=== PATIENT | female | born 1990 | race American Indian/Alaskan Native ===

== ENCOUNTER 2016-03-05 11:23 | Inpatient (IN) | payer OTHER, MEDICAID ==
--- NOTE | 2016-03-05 12:09 | History and Physical Report ---
History of Present Illness Date of examination: 03/05/16 Date of admission: 03/05/16 11:23 Chief complaint: Pt sent in for admission d/t elevated b/p in office today @ 35w2d, severe IUGR <1st% by AMF. Currently dx with gestation htn. pt reports OJEDA and blurred vision last night but not currently. 24h completed and turned into AMFM 03/01 but not enough urine to give accurate results. Patient will repeat test in hospital. History of present illness: EDC Calculations by 1st trimester u/s - 04/07/16 Past History : 3 Term Births: 0 Premature Births: 0 Living Children: 0 Para: 0 Mult. Births: 0 Prev : 0 Aborta: 2 Elect. Ab: 1 Spont. Ab: 1 # 1 Delivery date: 2006 Weeks Gestation: 17 Delivery type: SAB Comments: pt reports no FHT, unknown cause # 2 Delivery date: 2009 Weeks Gestation: 14 Delivery type: EAB Past Medical History: Negative Past Medical History Past Surgical History: negative Past Medical History Anesthesia Complications: negative Anemia: negative Autoimmune Disorder: negative Bleeding Disorder: negative Blood Transfusions: negative Breast Disease: negative Diabetes: negative Heart Disease: negative Hypertension: negative Hepatitis/Liver Disease: negative Kidney Disease/UTI: negative Neurologic/Epilepsy/Migraines: negative Phlebitis/Varicosities: negative Psychiatric: negative Pulmonary Disease/Asthma: negative Thyroid Disease: negative Hospitalizations: negative Surgery (Non-product manager): 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 Infection History Hx of STD: none HIV Risk Eval: no Hepatitis B Risk Eval: low risk Personal hx. of genital herpes: no Partner hx. of genital herpes: no Rash, Viral, or Febrile illness since last LMP? no Varicella/Chicken Pox Status: Previous Disease TB Risk: no Genetic History Congenital Heart Defect: Mom: no Dad: no Ethan Disease: Mom: no Dad: no Thalassemia Mom: no Dad: no Neural Tube Defect Mom: no Dad: no Down's Syndrome Mom: no Dad: no Gigi-Sachs Mom: no Dad: no Sickle Cell Disease/Trait Mom: no Dad: no Hemophilia Mom: no Dad: no Muscular Dystrophy Mom: no Dad: no Cystic Fibrosis Mom: no Dad: no Quynh Chorea Mom: no Dad: no Mental Retardation Mom: no Dad: no Fragile X Mom: no Dad: no Other Genetic/Chromosomal Disorder Mom: no Dad: no Child w/other defect Mom: no Dad: no Enviromental Exposures Xray Exposure: no Medication, drug, or alcohol use since LMP: no Chemical/Other Exposure: no Exposure to Cat Liter: no Hx of Parvovirus (Fifth Disease): no Occupational Exposure to Children: none Active Medications (reviewed today): ZOFRAN 4 MG ORAL TABS (ONDANSETRON HCL) 1 po q6h PRN nausea Current Allergies (reviewed today): LATEX GLOVES (DISPOSABLE GLOVES) (Critical) ALEVE (NAPROXEN SODIUM CAPS) (Critical) Past History - Obstetrical History Expected Date of Delivery: 04/07/16 Actual Gestation: 35 Week(s) 2 Day(s) : 3 Para: 0 Hx # Term Pregnancies: 0 Number of Pregnancies: 0 Spontaneous Abortions: 1 Induced : 1 Number of Living Children: 0 Medications and Allergies Allergies Allergy/AdvReac Type Severity Reaction Status Date / Time Latex, Natural Rubber Allergy Hives Verified 03/05/16 11:46 naproxen sodium [From Aleve] Allergy Hives Verified 08/15/15 23:27 Home Medications Medication Instructions Recorded Confirmed Last Taken Type Ondansetron [Zofran Odt] 4 mg PO Q4H PRN #20 tab.rapdis 08/16/15 09/30/15 14:00 Rx 4mg Famotidine [Pepcid] 10 mg PO BID #30 tablet 09/03/15 09/30/15 Unknown Rx Ondansetron [Zofran INJ] 4 mg IV Q12HR #14 vial 09/03/15 09/30/15 1 Day Ago Rx 4mg Promethazine HCl [Phenergan SUPPOS] 25 mg RC Q6HR #30 supp.rect 09/03/15 1 Day Ago Rx 25 RX: Propylthiouracil 50 mg PO Q12HR #60 tablet 09/03/15 09/30/15 09/30/15 02:00 Rx 50mg RX: Methimazole 15 mg PO Q12H #60 tablet 10/01/15 Unknown Rx RX: Potassium Chloride 20 meq PO DAILY #7 tab.er.prt 10/04/15 Unknown Rx Review of Systems All systems: negative - Vital Signs Vital signs: Vital Signs Pulse BP 70 142/92 03/05/16 11:44 03/05/16 11:44 Temp Pulse Resp BP Pulse Ox 98.0 F 70 18 142/90 03/05/16 11:49 03/05/16 11:49 03/05/16 11:49 03/05/16 11:49 - Physical Exam Breasts: Positive: normal Cardiovascular: Regular rate Lungs: Positive: Clear to auscultation, Normal air movement Abdomen: Positive: normal appearance, soft Genitourinary (Female): Positive: normal external genitalia, normal perenium Vulva: both: normal Vagina: Positive: normal moisture Uterus: Positive: normal size, normal contour Deep Tendon Reflex Grade: Normal +2 Results Result Diagrams: 03/05/16 12:35 03/05/16 12:35 All other labs normal. Laboratory Data-Patient Name: MORALES KULKARNI Test Date Result Blood Type 10/06/2015 O Rh 10/06/2015 Positive Antibody Screen negative Rubella 10/06/2015 immune Serology (RPR) 10/06/2015 nonreactive HBsAg 10/06/2015 Negative Hemoglobin 12/19/2015 10.4 Hematocrit 12/19/2015 32.1 Platelets 10/06/2015 286 [id number] Chlamydia DNA 08/18/2015 Negative GC DNA/Culture 08/18/2015 Urine Culture Group B Strep cult collected 03/05/16 in office PAP 08/18/2015 Normal, Satisfactory, No endocervical cells HIV 10/06/2015 AFP/Quad Screen Glucola Test 3hr GTT (Fasting) 1 hr 2 hr 3 hr OPTIONAL LAB[facility]-Patient Name:MORALES KULKARNI Test Date Result Varicella Ab Sickle Cell 10/06/2015 Negative PPD Fibronectin Cystic Fibrosis Parvovirus TSH 11/21/2015 1.180 Free T4 11/21/2015 1.02 Hepatitis C ALT AST Uric Acid Creatinine 10/06/2015 0.50 24 hr Urine Protein FRANCISCO Assessment and Plan 25y/u @ 35+2 weeks, gestation htn, severe IUGR and Hyperthyroid. orders in EMR. Plan for repeat 24h urine and monitoring. AMFM consult in AM. - Patient Problems (1) 35 weeks gestation of Current Visit: Yes Status: Acute (2) Gestational HTN Current Visit: Yes Status: Acute Qualifiers: Trimester: third trimester Qualified Code(s): O13.3 - Gestational [ -induced] hypertension without significant proteinuria, third trimester Plan to address problem: 24 hour urine monitor for s/s pre-e (3) Hyperthyroidism Current Visit: Yes Status: Acute Plan to address problem: continue on methimazole (4) IUGR (intrauterine growth restriction) Current Visit: Yes Status: Acute Plan to address problem: continuous EFM and toco monitor for s/s distress.
[2016-03-05] MEDS ORDERED: TYLENOL PO PRN (12:12)
[2016-03-05] MEDS ORDERED: DEEP SEA NS PRN (12:12)
[2016-03-05] MEDS ORDERED: BENADRYL PO PRN (12:12)
[2016-03-05] MEDS ORDERED: COLACE PO PRN (12:12)
[2016-03-05] MEDS ORDERED: MYLICON PO PRN (12:12)
[2016-03-05] MEDS ORDERED: MILK OF MAGNESIA PO PRN (12:12)
[2016-03-05] MEDS ORDERED: AMBIEN PO PRN (12:12)
[2016-03-05] MEDS ORDERED: SENOKOT S PO PRN (12:12)
[2016-03-05] MEDS ORDERED: SODIUM CHLORIDE FLUSH SYRINGE 10 ML IV PRN (12:12)
[2016-03-05] MEDS ORDERED: ALUM-MAG HYDROX-SIMETH 200-200-20MG/5ML PO PRN (12:12)
[2016-03-05] MEDS ORDERED: ZOFRAN IV PRN (12:12)
[2016-03-05] MEDS ORDERED: LACTATED RINGERS 1,000 ML IV SCH (13:00)
[2016-03-05 13:10] LABS: Eosinophils % (Auto) 0.1 % (0.0-4.3); Hemoglobin 11.6 gm/dl (10.1-14.3); Mean Corpuscular HGB Conc 33 % (30-34); Mean Corpuscular Hemoglobin 30 pg (28-32); Mean Corpuscular Volume 90 fl (79-97); Platelet Count 234 K/mm3 (140-440); Red Cell Distribution Width 13.5 % (13.2-15.2)
[2016-03-05 13:18] LABS: Bilirubin,Urine NEG (Negative); Blood,Urine NEG (Negative); Ketones,Urine NEG (Negative); Leukocyte Esterase,Urine LG (Negative); Mucus,Urine 1+ /HPF; Nitrite,Urine NEG (Negative); Urobilinogen,Urine < 2.0 mg/dL (<2.0)
[2016-03-05 13:30] LABS: Alanine Aminotransferase 12 units/L (7-56); Lactate Dehydrogenase 296 units/L (91-180); Uric Acid 5.8 mg/dL (3.5-7.6)
--- NOTE | 2016-03-05 17:44 | Event Note ---
Date: 03/05/16 Pt had elevated bps in office in the mild range. Pt was to restart 24hr urine since Wednesday 03/01 but has not done so due to working. Pt admitted due to sx and to do the 24hr urine collection. Plan of care d/w pt in office and all questions were addressed and answered.
[2016-03-05] MEDS ORDERED: TAPAZOLE PO SCH (22:00)
--- NOTE | 2016-03-06 07:35 | Event Note ---
Date: 03/06/16 Pt vtx on sono done 02/27/16
--- NOTE | 2016-03-06 08:51 | Admit Criteria Form ---
Admission Criteria Documentation: OBSTETRIC AND GYNECOLOGIC DISEASE GRG Clinical Indications for Admission to Inpatient Care (Place 'X' for any and all applicable criteria): Hospital admission is needed for appropriate care of the patient because of ANY ONE of the following (1)(2)(3): [ ]I. Hemodynamic instability, as indicated by ALL of the following (1)(2)(3)( 4)(5): [ ]a) Vital signs or other findings not as expected for chronic patient condition or baseline [ ]b) Instability indicated by ANY ONE of the following: [ ]i) Hypotension [ ]ii) Symptomatic tachycardia unresponsive to treatment (eg, analgesia, fluids, sedation as indicated) [ ]iii) Inadequate perfusion indicated by ANY ONE of the following: [ ]A. Lactic acidosis (greater than 2 mmol/ L) [ ]B. New abnormal capillary refill ( greater than 3 seconds) [ ]C. Reduced urine output [ ]D. New altered mental status [ ]iv) Orthostatic vital sign changes unresponsive to treatment (eg, fluids) [ ]v) Multiple IV fluid boluses required to maintain adequate blood pressure or perfusion [ ]vi) IV inotropic or vasopressor medication required to maintain adequate blood pressure or perfusion [ ]II. Obstetric infection requiring hospitalization indicated by ANY ONE of the following(13)(14): [ ]a) Chorioamnionitis [ ]b) Endometritis (except mild endometritis) [ ]c) Pelvic abscess [ ]d) Peritonitis [ ]e) Septic pelvic thrombophlebitis [ ]III. Amniotic fluid or pulmonary embolism(4)(5)(6) [ ]IV. Suspected peritonitis or ectopic requiring monitoring beyond scope of 24 hours or observation care(7)(8) [ ]V. compromise requiring hospitalization indicated by ALL of the following(9)(10): [ ]a) compromise indicated by ANY ONE of the following(11): [ ]i) Abnormal heart rate monitoring [ ]ii) Abnormal contraction stress test [ ]iii) Abnormal biophysical profile [ ]iv) Abnormal Doppler flow in vessels (ie, Doppler velocimetry) (12) [ ]b) Persistence of compromise indicators during evaluation and observation monitoring [ ]. Ovarian hyperstimulation syndrome requiring hospitalization[A] indicated by ALL of the following(15): [ ]a) Recent ovarian stimulation with gonadotropins, or evidence on ultrasound of spontaneous emergence of large number of ovarian follicles [ ]b) Evidence of severe ovarian hyperstimulation syndrome indicated by ANY ONE of the following: [ ]i) Abdominal pain unresponsive to oral therapy [ ]ii) Acute respiratory distress syndrome [ ]iii) Electrolyte imbalance ( eg, hyponatremia, hyperkalemia) [ ]iv) Elevated liver enzymes [ ]v) Evidence of thromboembolism [ ]vi) Hemoconcentration (hematocrit greater than 45 % (0.45)) [ ]vii) Inability to maintain oral intake adequate to prevent hemoconcentration [ ]viii) Marked hypotension from baseline (eg, SBP 20 mmHg below patients usual pressure) [ ]ix) Oliguria or anuria [ ]x) Ovarian torsion [ ]xi) Pleural or pericardial effusion on x-ray or echocardiogram [ ]xii) Rapid increase in serum creatinine to greater than 1.2 mg/dL (106 micromoles/L) or creatinine clearance less than 50 mL/min/1.73m2 (0.84 mL/ sec/1.73m2) [ ]xiii) Ruptured ovarian cyst with hemorrhage [ ]xiv) Severe abdominal pain or peritoneal signs [ ]xv) Tense ascites that cannot be managed with paracentesis in outpatient setting [ ]VII.Pelvic infection requiring hospitalization indicated by ANY ONE of the following (16): [ ]a) Outpatient treatment has failed or is not appropriate (eg, inpatient monitoring required) [ ]b) Pelvic abscess [ ]c) Surgical emergency cannot be excluded (eg, rigid abdomen) [ ]d) Vomiting precluding outpatient and observation care management VIII. loss complications requiring inpatient medical treatment indicated by ANY ONE of the following (4)(7)(9): [ ]a) Fever [ ]b) Peritonitis [ ]c) Sepsis [ ]d) Severe abdominal pain [ ]IX. or patient requiring monitoring for severe heart failure, pulmonary disease, or other comorbid condition (eg, peripartum cardiomyopathy) (4)(17) [ ]X. patient with rupture of membranes requiring hospitalization indicated by ANY ONE of the following: [ ]a) Chorioamnionitis, cloudy amniotic fluid, or other evidence of infection [ ]b) compromise or other need for monitoring (11) [ ]c) Gestation longer than 23 weeks and ANY ONE of the following: [ ]i) Abnormal (noncephalic) presentation [ ]ii) Inadequate home environment (eg, home too far from hospital, unable to rapidly return to hospital) [ ]d) Temperature greater than 100.4 degrees F (38 degrees C)( oral) [ ]e) Threatened labor requiring monitoring beyond scope (eg, over 24 hours) of observation Care [ ] XI. complications, including severe lacerations, infections, or retained placenta (19) [ ] XII.Uterine bleeding with high-risk features indicated by ANY ONE of the following (4): [ ]a) Active major hemorrhage (eg, hemorrhage) [ ]b) Coagulopathy with active bleeding [ ]c) Gestational trophoblastic disease (eg, molar ) (20 ) [ ]d) (longer than 23 weeks) and ANY ONE of the following: [ ]i) Pain [ ]ii) Placental abruption, known or suspected [ ]iii) Placenta accrete, known or suspected(21) [ ]iv) Placenta previa, known or suspected [ ]v) Vasa previa [ ]e) Severe anemia [ X]XIII. Obstetric or Gynecologic Disease, condition or symptom for which ANY ONE of the following: [ X]a) Emergency and observation care have failed or are not considered appropriate ( Also use General Criteria: Observation Care Criteria as appropriate) [ ]b) Presence of a General Admission Criteria or Pediatric General Admission Criteria The original [facility] [employer] content created by [employer] has been revised. The portions of the content which have been revised are identified through the use of italic text or in bold, and [facility] has neither reviewed nor approved the modified material.All other unmodified content is copyright [facility]. Please see references footnoted in the original [facility] edition 2016 Admission Criteria Met: Yes
--- NOTE | 2016-03-06 08:52 | Progress Note ---
Assessment and Plan Will proceed with Tonya now Proceed with delivery if 24hr 300mg/24hr or greater - Patient Problems (1) 35 weeks gestation of Current Visit: Yes Status: Acute (2) Gestational HTN Current Visit: Yes Status: Acute Qualifiers: Trimester: third trimester Qualified Code(s): O13.3 - Gestational [ -induced] hypertension without significant proteinuria, third trimester (3) Hyperthyroidism Current Visit: Yes Status: Acute (4) IUGR (intrauterine growth restriction) Current Visit: Yes Status: Acute Subjective - Subjective Date of service: 03/06/16 Principal diagnosis: IUP@35 3/7wga, CHTN, IUGR Objective - Vital Signs Vital Signs: Vital Signs - 12hr 03/05/16 03/05/16 03/05/16 21:18 21:40 22:31 Temperature Pulse Rate 69 64 77 Pulse Rate [ From Monitor] Respiratory Rate Blood Pressure 157/85 141/95 145/98 Blood Pressure [Right Arm] 03/05/16 03/05/16 03/05/16 23:02 23:06 23:15 Temperature 96.5 F L Pulse Rate 88 78 Pulse Rate [ From Monitor] Respiratory 18 Rate Blood Pressure 136/82 142/89 Blood Pressure [Right Arm] 03/05/16 03/06/16 03/06/16 23:29 00:09 01:24 Temperature 97.2 F L Pulse Rate 80 75 Pulse Rate [ From Monitor] Respiratory 20 Rate Blood Pressure 144/93 144/82 Blood Pressure [Right Arm] 03/06/16 03/06/16 03/06/16 03:09 03:12 04:20 Temperature 98.2 F Pulse Rate 90 71 Pulse Rate [ From Monitor] Respiratory 16 Rate Blood Pressure 143/89 131/83 Blood Pressure [Right Arm] 03/06/16 03/06/16 03/06/16 06:21 07:24 07:26 Temperature 98.7 F Pulse Rate 74 74 97 H Pulse Rate [ 97 H From Monitor] Respiratory 16 Rate Blood Pressure 134/96 135/83 130/59 Blood Pressure 130/59 [Right Arm] 03/06/16 08:25 Temperature Pulse Rate 65 Pulse Rate [ From Monitor] Respiratory Rate Blood Pressure 140/87 Blood Pressure [Right Arm] - Exam Breasts: deferred Cardiovascular: Regular rate Lungs: Clear to auscultation, Normal air movement Abdomen: Present: normal appearance, soft Uterus: Present: normal FHR: category 1 Uterine Contraction Monitor Mode: External Extremities: normal Deep Tendon Reflex Grade: Normal +2 - Labs Labs: Abnormal Labs 03/05/16 03/05/16 03/05/16 12:30 12:35 12:35 [place] % (Auto) 7.6 H Seg Neutrophils % 72.0 H Lactate Dehydrogenase 296 H Urine WBC (Auto) 21.0 H Laboratory Results - last 24 hr 03/05/16 03/05/16 03/05/16 12:30 12:35 12:35 WBC RBC Hgb Hct MCV MCH MCHC RDW Plt Count Lymph % (Auto) [place] % (Auto) Eos % (Auto) Baso % (Auto) Lymph # [place] # Eos # Baso # Seg Neutrophils % Seg Neutrophils # Creatinine 0.8 Estimated GFR > 60 Uric Acid 5.8 AST 32 ALT 12 Lactate Dehydrogenase 296 H Urine Color Yellow Urine Turbidity Clear Urine pH 6.0 Ur Specific [place] 1.023 Urine Protein 30 mg/dl Urine Glucose (UA) Neg Urine Ketones Neg Urine Blood Neg Urine Nitrite Neg Urine Bilirubin Neg Urine Urobilinogen < 2.0 Ur Leukocyte Esterase Lg Urine WBC (Auto) 21.0 H Urine RBC (Auto) 10.0 U Epithel Cells (Auto) 6.0 Urine Mucus 1+ Blood Type O POSITIVE Antibody Screen Negative 03/05/16 12:35 WBC 8.0 RBC 3.90 Hgb 11.6 Hct 35.0 MCV 90 MCH 30 MCHC 33 RDW 13.5 Plt Count 234 Lymph % (Auto) 19.3 [place] % (Auto) 7.6 H Eos % (Auto) 0.1 Baso % (Auto) 1.0 Lymph # 1.5 [place] # 0.6 Eos # 0.0 Baso # 0.1 Seg Neutrophils % 72.0 H Seg Neutrophils # 5.7 Creatinine Estimated GFR Uric Acid AST ALT Lactate Dehydrogenase Urine Color Urine Turbidity Urine pH Ur Specific [place] Urine Protein Urine Glucose (UA) Urine Ketones Urine Blood Urine Nitrite Urine Bilirubin Urine Urobilinogen Ur Leukocyte Esterase Urine WBC (Auto) Urine RBC (Auto) U Epithel Cells (Auto) Urine Mucus Blood Type Antibody Screen
[2016-03-06] MEDS ORDERED: CELESTONE SOLUSPAN IM SCH ×2 (09:00→10:00)
[2016-03-06] MEDS ORDERED: PRENATAL VITAMIN PO SCH (10:00)
--- NOTE | 2016-03-06 14:34 | Discharge Summary ---
Providers - Providers Date of Admission: 03/05/16 11:23 Date of discharge: 03/06/16 Attending physician: MAREK ALVARADO 03/05/16 16:38 Consult to Physician [CONS] Routine Consulting Provider: ANGIE COTTON Reason For Exam: elevated b/p, existing patient of [facility] Place consult to:: [facility] Notified:: A/S Phone number called:: [phone] Was contact made?: Yes If yes, spoke with:: VELVET Time called:: 07:19 Comment:: WILL CALL O/C Primary care physician: MICKEY JOHNSON Hospitalization Reason for admission: IUP@35 weeks, GHTN, IUGR Condition: Good Hospital course: Patient was admitted to be evaluated for Preeclampsia. Her 24hr urine was 266mg/ 24hr. BP's ranged b/w 100's-150's/50's-90s. SVE:0/0/-4 FHT's cat1, no UC's Disposition: DISCHARGED TO HOME OR SELFCARE - Discharge Diagnoses (1) 35 weeks gestation of Status: Acute (2) Gestational HTN Status: Acute Qualifiers: Trimester: third trimester Qualified Code(s): O13.3 - Gestational [ -induced] hypertension without significant proteinuria, third trimester (3) Hyperthyroidism Status: Acute (4) IUGR (intrauterine growth restriction) Status: Acute Core Measure Documentation - Palliative Care Palliative Care/ Comfort Measures: Not Applicable - Core Measures Any of the following diagnoses?: none Exam - Constitutional Vitals: Temp Pulse Resp BP Pulse Ox 98.5 F 81 18 155/93 03/06/16 12:45 03/06/16 14:25 03/06/16 12:45 03/06/16 14:25 Plan Activity: other (Stay at home except for care visits) Weight Bearing Status: Weight Bear as Tolerated (<25#) Diet: regular Special Instructions: no heavy lifting Additional Instructions: Take Methimazole once a day. Return to [facility] tomorrow for 2nd dose of [place]. Keep appointment with [facility] as scheduled. Call office for SBP 160 or > or DBP 105 or >. Labor precautions and kick count instuctions Follow up with: MAREK ALVARADO MD [Staff Physician] - 03/12/16 9:45 am ([place])
[2016-03-07] MEDS ORDERED: TAPAZOLE PO SCH (10:00)
[2016-03-09 23:22] VITALS: BP 157/93
== END 2016-03-06 14:53 | disposition home or self-care (01) | DRG 781 ==
LOC: LD 11:23 → OBSVTOIN 12:12
PROVIDERS: ADMIT Obstetrics & Gynecology; ATTEND Obstetrics & Gynecology
DX: O13.3 Gestational [pregnancy-induced] hypertension without significant proteinuria, third trimester (principal); O99.283 Endocrine, nutritional and metabolic diseases complicating pregnancy, third trimester; O36.5930 Maternal care for other known or suspected poor fetal growth, third trimester, not applicable or unspecified; Z3A.35 35 weeks gestation of pregnancy; Z91.040 Latex allergy status; Z88.8 Allergy status to other drugs, medicaments and biological substances
CPT/HCPCS: 36415; 81001; 82565; 82570; 82575; 83615; 84156; 84450; 84460; 84550; 85025; 86850; 86900; 86901; G0378; G0379; J0702

== ENCOUNTER 2016-03-07 08:53 | Outpatient (CLI) | payer OTHER, MEDICAID ==
[2016-03-07] MEDS ORDERED: LACTATED RINGERS 500 ML IV ONE (09:20)
[2016-03-07] MEDS ORDERED: CELESTONE SOLUSPAN IM SCH (10:00)
[2016-03-08 16:48] VITALS: BP 154/87
== END 2016-03-07 09:47 | disposition home or self-care (01) ==
LOC: TRG 08:53
PROVIDERS: ATTEND Obstetrics & Gynecology
DX: O47.9 False labor, unspecified (principal); Z3A.00 Weeks of gestation of pregnancy not specified
CPT/HCPCS: 96372; J0702

== ENCOUNTER 2016-03-08 12:03 | Inpatient (IN) | payer OTHER, MEDICAID ==
[2016-03-08] MEDS ORDERED: SUBLIMAZE IV PRN (12:12)
[2016-03-08] MEDS ORDERED: ZOFRAN IV PRN (12:12)
[2016-03-08] MEDS ORDERED: XYLOCAINE 2% INFILTRATI ONE (12:12)
[2016-03-08] MEDS ORDERED: ePHEDrine SULFATE IV PRN (12:12)
[2016-03-08] MEDS ORDERED: MINERAL OIL PO PRN (12:12)
[2016-03-08] MEDS ORDERED: BRETHINE SUB-Q PRN (12:12)
--- NOTE | 2016-03-08 12:40 | History and Physical Report ---
History of Present Illness Date of examination: 03/08/16 (sent from [facility] @ 35 wks with recommendation to induce; GHTN/IUGR) Date of admission: 03/08/16 12:03 History of present illness: Past History : 3 Term Births: 0 Premature Births: 0 Living Children: 0 Para: 0 Mult. Births: 0 Prev : 0 Aborta: 2 Elect. Ab: 1 Spont. Ab: 1 # 1 Delivery date: 2006 Weeks Gestation: 17 Delivery type: SAB Comments: pt reports no FHT, unknown cause # 2 Delivery date: 2009 Weeks Gestation: 14 Delivery type: EAB Past Medical History: Negative Past Medical History Past Surgical History: negative Past Medical History Anesthesia Complications: negative Anemia: negative Autoimmune Disorder: negative Bleeding Disorder: negative Blood Transfusions: negative Breast Disease: negative Diabetes: negative Heart Disease: negative Hypertension: negative Hepatitis/Liver Disease: negative Kidney Disease/UTI: negative Neurologic/Epilepsy/Migraines: negative Phlebitis/Varicosities: negative Psychiatric: negative Pulmonary Disease/Asthma: negative Thyroid Disease: negative Hospitalizations: negative Surgery (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 Infection History Hx of STD: none HIV Risk Eval: no Hepatitis B Risk Eval: low risk Personal hx. of genital herpes: no Partner hx. of genital herpes: no Rash, Viral, or Febrile illness since last LMP? no Varicella/Chicken Pox Status: Previous Disease TB Risk: no Genetic History Congenital Heart Defect: Mom: no Dad: no Ethan Disease: Mom: no Dad: no Thalassemia Mom: no Dad: no Neural Tube Defect Mom: no Dad: no Down's Syndrome Mom: no Dad: no Gigi-Sachs Mom: no Dad: no Sickle Cell Disease/Trait Mom: no Dad: no Hemophilia Mom: no Dad: no Muscular Dystrophy Mom: no Dad: no Cystic Fibrosis Mom: no Dad: no Vermilion Chorea Mom: no Dad: no Mental Retardation Mom: no Dad: no Fragile X Mom: no Dad: no Other Genetic/Chromosomal Disorder Mom: no Dad: no Child w/other defect Mom: no Dad: no Enviromental Exposures Xray Exposure: no Medication, drug, or alcohol use since LMP: no Chemical/Other Exposure: no Exposure to Cat Liter: no Hx of Parvovirus (Fifth Disease): no Occupational Exposure to Children: none Active Medications (reviewed today): ZOFRAN 4 MG ORAL TABS (ONDANSETRON HCL) 1 po q6h PRN nausea Current Allergies (reviewed today): LATEX GLOVES (DISPOSABLE GLOVES) (Critical) ALEVE (NAPROXEN SODIUM CAPS) (Critical) Laboratory Results Routine Urinalysis Leukocytes: negative Nitrite: negative Urobilinogen: negative Protein: 2+ Blood: negative Ketone: large (160) Bilirubin: negative Glucose: negative Urine HCG: positive Review of Systems General Denies fever, chills, sweats, anorexia, fatigue, weakness, malaise, weight loss and sleep disorder. Complains of nausea and vomiting. Denies headache, swelling of legs, abdominal pain, vaginal discharge, vaginal bleeding and contractions. Denies vaginal discharge, incontinence, dysuria, hematuria, urinary frequency, amenorrhea, menorrhagia, abnormal vaginal bleeding, pelvic pain, genital sores, decreased libido, painful periods, painful sex, urinary urgency, hot flashes, vaginal dryness, vaginal itching and vaginal odor. CV Denies chest pains, palpitations, syncope, dyspnea on exertion, orthopnea, PND and peripheral edema. Resp Denies cough, dyspnea at rest, excessive sputum, hemoptysis, wheezing and pleurisy. GI Denies nausea, vomiting, diarrhea, constipation, change in bowel habits, abdominal pain, melena, hematochezia, jaundice, gas/bloating, indigestion/ heartburn, dysphagia and odynophagia. Endo Denies cold intolerance, heat intolerance, polydipsia, polyphagia, polyuria and unusual weight change. Breast Denies left breast lump, right breast lump, nipple discharge, bloody discharge from nipple, breast pain, abnormal mammogram and breast enlargement. MS Denies back pain, joint pain, joint swelling, muscle cramps, muscle weakness, stiffness, arthritis, sciatica, restless legs, leg pain at night and leg pain with exertion. Derm Denies rash, itching, dryness and suspicious lesions. Neuro Denies paralysis, paresthesias, headache, seizures, tremors, vertigo, transient blindness, frequent falls, frequent headaches and difficulty walking. Psych Denies depression, anxiety, irritability and mood swings. Eyes Denies blurring, diplopia, irritation, discharge, vision loss, eye pain and photophobia. ENT Denies earache, ear discharge, tinnitus, decreased hearing, nasal congestion, nosebleeds, sore throat and hoarseness. Allergy Denies urticaria, allergic rash, hay fever and recurrent infections. Heme Denies abnormal bruising, bleeding and enlarged lymph nodes. 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 Vulva/Vagina: No lesions, normal BUS, normal rugae Cervix: No lesions; no cervical motion tenderness Uterus: normal size and position, midline, mobile Fundal Ht: 7 Adnexae: no masses or tenderness Rectovaginal: no masses or tenderness Past History - Obstetrical History Expected Date of Delivery: 04/07/16 Actual Gestation: 35 Week(s) 5 Day(s) : 3 Para: 0 Spontaneous Abortions: 1 Induced : 1 Number of Living Children: 0 Medications and Allergies Allergies Allergy/AdvReac Type Severity Reaction Status Date / Time Latex, Natural Rubber Allergy Hives Verified 03/05/16 11:46 naproxen sodium [From Aleve] Allergy Hives Verified 08/15/15 23:27 Home Medications Medication Instructions Recorded Confirmed Last Taken Type Ondansetron [Zofran Odt] 4 mg PO Q4H PRN #20 tab.rapdis 08/16/15 03/07/16 14:00 Rx 4mg Famotidine [Pepcid] 10 mg PO BID #30 tablet 09/03/15 03/07/16 Unknown Rx Ondansetron [Zofran INJ] 4 mg IV Q12HR #14 vial 09/03/15 03/07/16 1 Day Ago Rx 4mg Promethazine HCl [Phenergan SUPPOS] 25 mg RC Q6HR #30 supp.rect 09/03/15 1 Day Ago Rx 25 Propylthiouracil 50 mg PO Q12HR #60 tablet 09/03/15 03/07/16 09/30/15 02:00 Rx 50mg Methimazole 15 mg PO Q12H #60 tablet 10/01/15 03/07/16 1 Day Ago Rx Potassium Chloride 20 meq PO DAILY #7 tab.er.prt 10/04/15 03/07/16 Unknown Rx Active Meds: Active Medications Fentanyl (Sublimaze) 100 mcg IV Q2H PRN PRN Reason: Labor Pain Lactated Ringer's (Lactated Ringers) 1,000 mls @ 125 mls/hr IV DIRECT CLAY Oxytocin/Sodium Chloride (Pitocin/Ns 20 Unit/1000ml Drip) 1,000 mls @ 125 mls/ hr IV DIRECT CLAY Oxytocin/Sodium Chloride (Pitocin/Ns 30 Unit/500ml) 500 mls @ 4 mls/hr IV Q30MIN CLAY PRN Reason: Protocol Mineral Oil (Mineral Oil) 30 ml PO QHS PRN PRN Reason: Constipation Ondansetron HCl (Zofran) 4 mg IV Q8H PRN PRN Reason: Nausea And Vomiting - Physical Exam Breasts: Positive: deferred Cardiovascular: Regular rate, Normal S1, Normal S2 Lungs: Positive: Clear to auscultation, Normal air movement Abdomen: Positive: normal appearance, soft, normal bowel sounds. Negative: distention, tenderness Genitourinary (Female): Positive: normal external genitalia, normal perenium Vulva: both: normal Vagina: Positive: normal moisture. Negative: discharge Cervix: Negative: lesion, discharge Uterus: Positive: normal size, normal contour Adnexa: both: normal Anus/Rectum: Positive: normal perianal skin, heme negative. Negative: rectal mass, hemorrhoids Extremities: Positive: edema Deep Tendon Reflex Grade: Normal +2 - Obstetrical FHR: category 1 Uterine Contraction Monitor Mode: External Cervical Dilatation: 0.5 Cervical Effacement Percentage: 50 station: -3 Uterine Contraction Pattern: Absent Uterine Tone Measurement Phase: Resting Results All other labs normal. Laboratory Data-Patient Name: MORALES KULKARNI Test Date Result Blood Type 10/06/2015 O Rh 10/06/2015 Positive Antibody Screen Rubella 10/06/2015 Serology (RPR) 10/06/2015 HBsAg 10/06/2015 Negative Hemoglobin 12/19/2015 10.4 Hematocrit 12/19/2015 32.1 Platelets 10/06/2015 286 [id number] Chlamydia DNA 08/18/2015 Negative GC DNA/Culture 08/18/2015 Urine Culture Group B Strep cult PAP 08/18/2015 Normal, Satisfactory, No endocervical cells HIV 10/06/2015 AFP/Quad Screen Glucola Test 3hr GTT (Fasting) 1 hr 2 hr 3 hr [facility]-Patient Name:MORALES KULKARNI Test Date Result Varicella Ab Sickle Cell 10/06/2015 Negative PPD Fibronectin Cystic Fibrosis Parvovirus TSH 11/21/2015 1.180 Free T4 11/21/2015 1.02 Hepatitis C ALT AST Uric Acid Creatinine 10/06/2015 0.50 24 hr Urine Protein FRANCISCO Assessment and Plan - Patient Problems (1) 35 to 36 weeks gestation of Current Visit: Yes Status: Acute Plan to address problem: 25yo @ 35+ weeks with GHTN and IUGR <1% Sent from [facility] this AM with recommendation to deliver per Dr. Lama GBS negative Orders in EMR aware. (2) Gestational HTN Current Visit: Yes Status: Acute Qualifiers: Trimester: third trimester Qualified Code(s): O13.3 - Gestational [ -induced] hypertension without significant proteinuria, third trimester Plan to address problem: Worsening GHTN PIH labs drawn IOL started Pt aware of the serial nature of induction and that it may take several days (3) IUGR (intrauterine growth restriction) Current Visit: Yes Status: Acute Plan to address problem: EFW <1% noted on [facility] US this AM From Dr. Lama there has been growth but range of <1% remains Continuous monitoring IOL started. aware of pt's admission and POC
[2016-03-08] MEDS ORDERED: PITOCin/NS 20 UNIT/1000ML DRIP 1,000 ML IV SCH (13:00)
[2016-03-08] MEDS ORDERED: PITOCin/NS 30 UNIT/500ML 500 ML IV SCH (13:00)
[2016-03-08] MEDS: LACTATED RINGERS 1,000 ML IV SCH (13:40)
[2016-03-08 14:00] LABS: Hematocrit 34.7 % (30.3-42.9); Hemoglobin 11.2 gm/dl (10.1-14.3); Mean Corpuscular HGB Conc 32 % (30-34); Mean Corpuscular Hemoglobin 29 pg (28-32); Mean Corpuscular Volume 91 fl (79-97); Platelet Count 259 K/mm3 (140-440); Red Blood Count 3.83 M/mm3 (3.65-5.03); Red Cell Distribution Width 13.7 % (13.2-15.2); White Blood Count 13.5 K/mm3 (4.5-11.0)
[2016-03-08 14:18] LABS: Alanine Aminotransferase 7 units/L (7-56); Albumin 3.4 g/dL (3.9-5); Albumin/Globulin Ratio 0.9 %; Alkaline Phosphatase 169 units/L (35-129); Anion Gap 20 mmol/L; Bilirubin,Total < 0.2 mg/dL (0.1-1.2); Blood Urea Nitrogen 6 mg/dL (7-17); Carbon Dioxide 21 mmol/L (22-30); Chloride 98.9 mmol/L (98-107); Glucose 109 mg/dL (65-100); Potassium 3.5 mmol/L (3.6-5.0); Sodium 136 mmol/L (137-145)
[2016-03-08] MEDS: APRESOLINE IV PRN (14:46)
[2016-03-08] MEDS ORDERED: MAGNESIUM SULFATE 4GM/100ML 100 ML IV ONE (14:52)
[2016-03-08 16:03] LABS: Bilirubin,Urine NEG (Negative); Blood,Urine NEG (Negative); Ketones,Urine NEG (Negative); Leukocyte Esterase,Urine NEG (Negative); Nitrite,Urine NEG (Negative); Protein,Urine <15 mg/dL mg/dL (Negative); Urobilinogen,Urine < 2.0 mg/dL (<2.0); WBC,Urine < 1.0 /HPF (0.0-6.0)
[2016-03-08] MEDS: MAGNESIUM SULFATE 40GM/1000ML 1,000 ML IV SCH (16:25)
[2016-03-08] MEDS ORDERED: CERVIDIL VG ONE (17:13)
--- NOTE | 2016-03-08 18:51 | Progress Note ---
Assessment and Plan - Patient Problems (1) 35 to 36 weeks gestation of Current Visit: Yes Status: Acute (2) IUGR (intrauterine growth restriction) Current Visit: Yes Status: Acute (3) Pre-eclampsia in third trimester Current Visit: No Status: Acute Plan to address problem: BP in the severe range this AM after admission. Hydralizine given X 1 dose MGSO4 started with 4gm bolus then 2gm per hour. given report agrees with interventions. Pt c/o OJEDA at time of elevated BPs this AM but states it has fully resolved @ this time. Strict I&Os, Mag levels ordered q6hr Light dinner given. PM care provided. Will place Cervidil @ 1900. Close observation of BPs and Tracing. Subjective - Subjective Date of service: 03/08/16 (pt w/o any c/o this PM) Interval history: Past History : 3 Term Births: 0 Premature Births: 0 Living Children: 0 Para: 0 Mult. Births: 0 Prev : 0 Aborta: 2 Elect. Ab: 1 Spont. Ab: 1 # 1 Delivery date: 2006 Weeks Gestation: 17 Delivery type: SAB Comments: pt reports no FHT, unknown cause # 2 Delivery date: 2009 Weeks Gestation: 14 Delivery type: EAB Past Medical History: Negative Past Medical History Past Surgical History: negative Past Medical History Anesthesia Complications: negative Anemia: negative Autoimmune Disorder: negative Bleeding Disorder: negative Blood Transfusions: negative Breast Disease: negative Diabetes: negative Heart Disease: negative Hypertension: negative Hepatitis/Liver Disease: negative Kidney Disease/UTI: negative Neurologic/Epilepsy/Migraines: negative Phlebitis/Varicosities: negative Psychiatric: negative Pulmonary Disease/Asthma: negative Thyroid Disease: negative Hospitalizations: negative 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 Infection History Hx of STD: none HIV Risk Eval: no Hepatitis B Risk Eval: low risk Personal hx. of genital herpes: no Partner hx. of genital herpes: no Rash, Viral, or Febrile illness since last LMP? no Varicella/Chicken Pox Status: Previous Disease TB Risk: no Genetic History Congenital Heart Defect: Mom: no Dad: no Ethan Disease: Mom: no Dad: no Thalassemia Mom: no Dad: no Neural Tube Defect Mom: no Dad: no Down's Syndrome Mom: no Dad: no Gigi-Sachs Mom: no Dad: no Sickle Cell Disease/Trait Mom: no Dad: no Hemophilia Mom: no Dad: no Muscular Dystrophy Mom: no Dad: no Cystic Fibrosis Mom: no Dad: no Parker Chorea Mom: no Dad: no Mental Retardation Mom: no Dad: no Fragile X Mom: no Dad: no Other Genetic/Chromosomal Disorder Mom: no Dad: no Child w/other defect Mom: no Dad: no Enviromental Exposures Xray Exposure: no Medication, drug, or alcohol use since LMP: no Chemical/Other Exposure: no Exposure to Cat Liter: no Hx of Parvovirus (Fifth Disease): no Occupational Exposure to Children: none Active Medications (reviewed today): ZOFRAN 4 MG ORAL TABS (ONDANSETRON HCL) 1 po q6h PRN nausea Current Allergies (reviewed today): LATEX GLOVES (DISPOSABLE GLOVES) (Critical) ALEVE (NAPROXEN SODIUM CAPS) (Critical) Laboratory Results Routine Urinalysis Leukocytes: negative Nitrite: negative Urobilinogen: negative Protein: 2+ Blood: negative Ketone: large (160) Bilirubin: negative Glucose: negative Urine HCG: positive Review of Systems General Denies fever, chills, sweats, anorexia, fatigue, weakness, malaise, weight loss and sleep disorder. Complains of nausea and vomiting. Denies headache, swelling of legs, abdominal pain, vaginal discharge, vaginal bleeding and contractions. Denies vaginal discharge, incontinence, dysuria, hematuria, urinary frequency, amenorrhea, menorrhagia, abnormal vaginal bleeding, pelvic pain, genital sores, decreased libido, painful periods, painful sex, urinary urgency, hot flashes, vaginal dryness, vaginal itching and vaginal odor. CV Denies chest pains, palpitations, syncope, dyspnea on exertion, orthopnea, PND and peripheral edema. Resp Denies cough, dyspnea at rest, excessive sputum, hemoptysis, wheezing and pleurisy. GI Denies nausea, vomiting, diarrhea, constipation, change in bowel habits, abdominal pain, melena, hematochezia, jaundice, gas/bloating, indigestion/ heartburn, dysphagia and odynophagia. Endo Denies cold intolerance, heat intolerance, polydipsia, polyphagia, polyuria and unusual weight change. Breast Denies left breast lump, right breast lump, nipple discharge, bloody discharge from nipple, breast pain, abnormal mammogram and breast enlargement. MS Denies back pain, joint pain, joint swelling, muscle cramps, muscle weakness, stiffness, arthritis, sciatica, restless legs, leg pain at night and leg pain with exertion. Derm Denies rash, itching, dryness and suspicious lesions. Neuro Denies paralysis, paresthesias, headache, seizures, tremors, vertigo, transient blindness, frequent falls, frequent headaches and difficulty walking. Psych Denies depression, anxiety, irritability and mood swings. Eyes Denies blurring, diplopia, irritation, discharge, vision loss, eye pain and photophobia. ENT Denies earache, ear discharge, tinnitus, decreased hearing, nasal congestion, nosebleeds, sore throat and hoarseness. Allergy Denies urticaria, allergic rash, hay fever and recurrent infections. Heme Denies abnormal bruising, bleeding and enlarged lymph nodes. 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 Vulva/Vagina: No lesions, normal BUS, normal rugae Cervix: No lesions; no cervical motion tenderness Uterus: normal size and position, midline, mobile Fundal Ht: 7 Adnexae: no masses or tenderness Rectovaginal: no masses or tenderness Patient reports: movement normal Objective - Vital Signs Vital Signs: Vital Signs - 12hr 03/08/16 03/08/16 03/08/16 12:43 13:07 13:26 Temperature 98.2 F Pulse Rate 65 70 Respiratory 16 Rate Blood Pressure 173/95 146/82 O2 Sat by Pulse Oximetry 03/08/16 03/08/16 03/08/16 13:46 14:08 14:26 Temperature Pulse Rate 73 65 68 Respiratory Rate Blood Pressure 168/98 180/96 185/102 O2 Sat by Pulse Oximetry 03/08/16 03/08/16 03/08/16 14:44 14:46 14:48 Temperature Pulse Rate 67 68 68 Respiratory Rate Blood Pressure 195/108 192/106 192/106 O2 Sat by Pulse 99 Oximetry 03/08/16 03/08/16 03/08/16 14:49 14:57 15:00 Temperature Pulse Rate 70 67 72 Respiratory Rate Blood Pressure 184/95 185/103 O2 Sat by Pulse 98 99 Oximetry 03/08/16 03/08/16 03/08/16 15:01 15:02 15:06 Temperature Pulse Rate 74 79 78 Respiratory Rate Blood Pressure 188/111 193/110 O2 Sat by Pulse 98 Oximetry 03/08/16 03/08/16 03/08/16 15:07 15:12 16:52 Temperature Pulse Rate 80 76 71 Respiratory Rate Blood Pressure O2 Sat by Pulse 99 99 99 Oximetry 03/08/16 03/08/16 03/08/16 16:56 16:57 17:02 Temperature Pulse Rate 79 75 79 Respiratory Rate Blood Pressure 162/96 O2 Sat by Pulse 100 100 Oximetry 03/08/16 03/08/16 03/08/16 17:07 17:12 17:15 Temperature Pulse Rate 75 74 71 Respiratory Rate Blood Pressure 165/94 141/85 O2 Sat by Pulse 100 100 Oximetry 03/08/16 03/08/16 03/08/16 17:16 17:17 17:22 Temperature Pulse Rate 70 84 78 Respiratory Rate Blood Pressure 136/85 O2 Sat by Pulse 99 97 Oximetry 03/08/16 03/08/16 17:26 17:27 Temperature Pulse Rate 83 89 Respiratory Rate Blood Pressure 154/96 O2 Sat by Pulse 98 Oximetry - Exam Breasts: deferred Cardiovascular: Regular rate Lungs: Normal air movement Abdomen: Present: normal appearance, soft. Absent: distention, tenderness Vulva: both: normal Uterus: Present: normal FHR: auscultation normal, category 1 Uterine Contraction Monitor Mode: External Uterine Contraction Pattern: Irregular Uterine Tone Measurement Phase: Resting Uterine Contraction Intensity: Mild Extremities: edema Deep Tendon Reflex Grade: Normal +2 - Labs Labs: Abnormal Labs 03/08/16 03/08/16 03/08/16 13:02 13:02 13:02 WBC 13.5 H Sodium 136 L Potassium 3.5 L Carbon Dioxide 21 L BUN 6 L Glucose 109 H AST 42 H Alkaline Phosphatase 169 H Lactate Dehydrogenase 362 H Albumin 3.4 L Laboratory Results - last 24 hr 03/08/16 03/08/16 03/08/16 12:53 13:02 13:02 WBC 13.5 H RBC 3.83 Hgb 11.2 Hct 34.7 MCV 91 MCH 29 MCHC 32 RDW 13.7 Plt Count 259 Sodium Potassium Chloride Carbon Dioxide Anion Gap BUN Creatinine Estimated GFR BUN/Creatinine Ratio Glucose Uric Acid 5.0 Calcium Total Bilirubin AST ALT Alkaline Phosphatase Lactate Dehydrogenase 362 H Total Protein Albumin Albumin/Globulin Ratio Urine Color Urine Turbidity Urine pH Ur Specific [place] Urine Protein Urine Glucose (UA) Urine Ketones Urine Blood Urine Nitrite Urine Bilirubin Urine Urobilinogen Ur Leukocyte Esterase Urine WBC (Auto) Urine RBC (Auto) Blood Type O POSITIVE Antibody Screen Negative 03/08/16 03/08/16 13:02 14:20 WBC RBC Hgb Hct MCV MCH MCHC RDW Plt Count Sodium 136 L Potassium 3.5 L Chloride 98.9 Carbon Dioxide 21 L Anion Gap 20 BUN 6 L Creatinine 0.8 Estimated GFR > 60 BUN/Creatinine Ratio 7.50 Glucose 109 H Uric Acid Calcium 9.0 Total Bilirubin < 0.2 AST 42 H ALT 7 Alkaline Phosphatase 169 H Lactate Dehydrogenase Total Protein 7.0 Albumin 3.4 L Albumin/Globulin Ratio 0.9 Urine Color Straw Urine Turbidity Clear Urine pH 7.0 Ur Specific [place] 1.005 Urine Protein <15 mg/dl Urine Glucose (UA) Neg Urine Ketones Neg Urine Blood Neg Urine Nitrite Neg Urine Bilirubin Neg Urine Urobilinogen < 2.0 Ur Leukocyte Esterase Neg Urine WBC (Auto) < 1.0 Urine RBC (Auto) 2.0 Blood Type Antibody Screen
[2016-03-08] MEDS ORDERED: PEPCID IV ONE (20:01)
[2016-03-08] MEDS: TYLENOL PO PRN (20:39)
--- NOTE | 2016-03-08 21:45 | Event Note ---
Date: 03/08/16 (cervidil placed) SVE no chg .5/50/-3 BP 130/80s FHT Cat 1. Only occasional mild ctx recorded. Pt encouraged to sleep. POC discussed All questions addressed Re-eval as needed. MGSO4 cont @ 2GM/hr
[2016-03-09] MEDS: LACTATED RINGERS 1,000 ML IV SCH ×3 (01:04→17:24)
[2016-03-09] MEDS ORDERED: STADOL ONE (04:09)
--- NOTE | 2016-03-09 04:31 | Progress Note ---
Assessment and Plan - Patient Problems (1) 35 to 36 weeks gestation of Current Visit: Yes Status: Acute Plan to address problem: SVE no chg Cervidil remains in place Pt states she had been resting then she began to have severe back pain Stadol 2mg IV given BP 137/88 Re-eval as needed (2) IUGR (intrauterine growth restriction) Current Visit: Yes Status: Acute (3) Pre-eclampsia in third trimester Current Visit: No Status: Acute Subjective - Subjective Date of service: 03/09/16 (pt calling out c/o severe back pain) Interval history: Past History : 3 Term Births: 0 Premature Births: 0 Living Children: 0 Para: 0 Mult. Births: 0 Prev : 0 Aborta: 2 Elect. Ab: 1 Spont. Ab: 1 # 1 Delivery date: 2006 Weeks Gestation: 17 Delivery type: SAB Comments: pt reports no FHT, unknown cause # 2 Delivery date: 2009 Weeks Gestation: 14 Delivery type: EAB Past Medical History: Negative Past Medical History Past Surgical History: negative Past Medical History Anesthesia Complications: negative Anemia: negative Autoimmune Disorder: negative Bleeding Disorder: negative Blood Transfusions: negative Breast Disease: negative Diabetes: negative Heart Disease: negative Hypertension: negative Hepatitis/Liver Disease: negative Kidney Disease/UTI: negative Neurologic/Epilepsy/Migraines: negative Phlebitis/Varicosities: negative Psychiatric: negative Pulmonary Disease/Asthma: negative Thyroid Disease: negative Hospitalizations: negative Surgery (Non-collar trimmer): 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 Infection History Hx of STD: none HIV Risk Eval: no Hepatitis B Risk Eval: low risk Personal hx. of genital herpes: no Partner hx. of genital herpes: no Rash, Viral, or Febrile illness since last LMP? no Varicella/Chicken Pox Status: Previous Disease TB Risk: no Genetic History Congenital Heart Defect: Mom: no Dad: no Ethan Disease: Mom: no Dad: no Thalassemia Mom: no Dad: no Neural Tube Defect Mom: no Dad: no Down's Syndrome Mom: no Dad: no Gigi-Sachs Mom: no Dad: no Sickle Cell Disease/Trait Mom: no Dad: no Hemophilia Mom: no Dad: no Muscular Dystrophy Mom: no Dad: no Cystic Fibrosis Mom: no Dad: no [place] Chorea Mom: no Dad: no Mental Retardation Mom: no Dad: no Fragile X Mom: no Dad: no Other Genetic/Chromosomal Disorder Mom: no Dad: no Child w/other defect Mom: no Dad: no Enviromental Exposures Xray Exposure: no Medication, drug, or alcohol use since LMP: no Chemical/Other Exposure: no Exposure to Cat Liter: no Hx of Parvovirus (Fifth Disease): no Occupational Exposure to Children: none Active Medications (reviewed today): ZOFRAN 4 MG ORAL TABS (ONDANSETRON HCL) 1 po q6h PRN nausea Current Allergies (reviewed today): LATEX GLOVES (DISPOSABLE GLOVES) (Critical) ALEVE (NAPROXEN SODIUM CAPS) (Critical) Laboratory Results Routine Urinalysis Leukocytes: negative Nitrite: negative Urobilinogen: negative Protein: 2+ Blood: negative Ketone: large (160) Bilirubin: negative Glucose: negative Urine HCG: positive Review of Systems General Denies fever, chills, sweats, anorexia, fatigue, weakness, malaise, weight loss and sleep disorder. Complains of nausea and vomiting. Denies headache, swelling of legs, abdominal pain, vaginal discharge, vaginal bleeding and contractions. Denies vaginal discharge, incontinence, dysuria, hematuria, urinary frequency, amenorrhea, menorrhagia, abnormal vaginal bleeding, pelvic pain, genital sores, decreased libido, painful periods, painful sex, urinary urgency, hot flashes, vaginal dryness, vaginal itching and vaginal odor. CV Denies chest pains, palpitations, syncope, dyspnea on exertion, orthopnea, PND and peripheral edema. Resp Denies cough, dyspnea at rest, excessive sputum, hemoptysis, wheezing and pleurisy. GI Denies nausea, vomiting, diarrhea, constipation, change in bowel habits, abdominal pain, melena, hematochezia, jaundice, gas/bloating, indigestion/ heartburn, dysphagia and odynophagia. Endo Denies cold intolerance, heat intolerance, polydipsia, polyphagia, polyuria and unusual weight change. Breast Denies left breast lump, right breast lump, nipple discharge, bloody discharge from nipple, breast pain, abnormal mammogram and breast enlargement. MS Denies back pain, joint pain, joint swelling, muscle cramps, muscle weakness, stiffness, arthritis, sciatica, restless legs, leg pain at night and leg pain with exertion. Derm Denies rash, itching, dryness and suspicious lesions. Neuro Denies paralysis, paresthesias, headache, seizures, tremors, vertigo, transient blindness, frequent falls, frequent headaches and difficulty walking. Psych Denies depression, anxiety, irritability and mood swings. Eyes Denies blurring, diplopia, irritation, discharge, vision loss, eye pain and photophobia. ENT Denies earache, ear discharge, tinnitus, decreased hearing, nasal congestion, nosebleeds, sore throat and hoarseness. Allergy Denies urticaria, allergic rash, hay fever and recurrent infections. Heme Denies abnormal bruising, bleeding and enlarged lymph nodes. 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 Vulva/Vagina: No lesions, normal BUS, normal rugae Cervix: No lesions; no cervical motion tenderness Uterus: normal size and position, midline, mobile Fundal Ht: 7 Adnexae: no masses or tenderness Rectovaginal: no masses or tenderness Patient reports: movement normal Objective - Vital Signs Vital Signs: Vital Signs - 12hr 03/08/16 03/08/16 03/08/16 16:52 16:56 16:57 Temperature Pulse Rate 71 79 75 Pulse Rate [ From Monitor] Respiratory Rate Blood Pressure 162/96 Blood Pressure [Left Arm] O2 Sat by Pulse 99 100 Oximetry 03/08/16 03/08/16 03/08/16 17:02 17:07 17:12 Temperature Pulse Rate 79 75 74 Pulse Rate [ From Monitor] Respiratory Rate Blood Pressure 165/94 Blood Pressure [Left Arm] O2 Sat by Pulse 100 100 100 Oximetry 01/30/17 01/30/17 01/30/17 17:15 17:16 17:17 Temperature Pulse Rate 71 70 84 Pulse Rate [ From Monitor] Respiratory Rate Blood Pressure 141/85 136/85 Blood Pressure [Left Arm] O2 Sat by Pulse 99 Oximetry 03/08/16 03/08/16 03/08/16 17:22 17:26 17:27 Temperature Pulse Rate 78 83 89 Pulse Rate [ From Monitor] Respiratory Rate Blood Pressure 154/96 Blood Pressure [Left Arm] O2 Sat by Pulse 97 98 Oximetry 03/08/16 03/08/16 03/08/16 19:14 19:47 20:16 Temperature 98.2 F Pulse Rate Pulse Rate [ 113 H 78 83 From Monitor] Respiratory 20 Rate Blood Pressure Blood Pressure 126/76 139/88 135/86 [Left Arm] O2 Sat by Pulse 97 Oximetry 03/08/16 03/08/16 03/08/16 20:39 20:47 21:16 Temperature Pulse Rate Pulse Rate [ 81 86 From Monitor] Respiratory 18 Rate Blood Pressure Blood Pressure 139/91 138/89 [Left Arm] O2 Sat by Pulse Oximetry 03/08/16 03/08/16 03/08/16 21:46 22:17 22:47 Temperature Pulse Rate Pulse Rate [ 82 78 75 From Monitor] Respiratory Rate Blood Pressure Blood Pressure 137/87 130/74 132/74 [Left Arm] O2 Sat by Pulse Oximetry 03/08/16 03/08/16 03/08/16 23:17 23:47 23:57 Temperature 98.0 F Pulse Rate Pulse Rate [ 81 102 H From Monitor] Respiratory 20 Rate Blood Pressure Blood Pressure 148/86 137/87 [Left Arm] O2 Sat by Pulse Oximetry 03/09/16 03/09/16 01:03 04:17 Temperature Pulse Rate Pulse Rate [ From Monitor] Respiratory 20 20 Rate Blood Pressure Blood Pressure [Left Arm] O2 Sat by Pulse Oximetry - Exam Breasts: deferred Cardiovascular: Regular rate Lungs: Normal air movement Abdomen: Present: normal appearance, soft. Absent: distention, tenderness Uterus: Present: normal FHR: auscultation normal, category 1 Uterine Contraction Monitor Mode: External Cervical Dilatation: 0.5 Cervical Effacement Percentage: 50 station: -3 Uterine Contraction Frequency (min): q4-6 Uterine Contraction Pattern: Regular Uterine Contraction Intensity: Moderate Extremities: edema Deep Tendon Reflex Grade: Normal +2 - Labs Labs: Abnormal Labs 03/08/16 03/08/16 03/08/16 13:02 13:02 13:02 WBC 13.5 H Sodium 136 L Potassium 3.5 L Carbon Dioxide 21 L BUN 6 L Glucose 109 H Magnesium AST 42 H Alkaline Phosphatase 169 H Lactate Dehydrogenase 362 H Albumin 3.4 L 03/08/16 18:30 WBC Sodium Potassium Carbon Dioxide BUN Glucose Magnesium 4.3 H AST Alkaline Phosphatase Lactate Dehydrogenase Albumin Laboratory Results - last 24 hr 03/08/16 03/08/16 03/08/16 12:53 13:02 13:02 WBC 13.5 H RBC 3.83 Hgb 11.2 Hct 34.7 MCV 91 MCH 29 MCHC 32 RDW 13.7 Plt Count 259 Sodium Potassium Chloride Carbon Dioxide Anion Gap BUN Creatinine Estimated GFR BUN/Creatinine Ratio Glucose Uric Acid 5.0 Calcium Magnesium Total Bilirubin AST ALT Alkaline Phosphatase Lactate Dehydrogenase 362 H Total Protein Albumin Albumin/Globulin Ratio Urine Color Urine Turbidity Urine pH Ur Specific [place] Urine Protein Urine Glucose (UA) Urine Ketones Urine Blood Urine Nitrite Urine Bilirubin Urine Urobilinogen Ur Leukocyte Esterase Urine WBC (Auto) Urine RBC (Auto) Blood Type O POSITIVE Antibody Screen Negative 03/08/16 03/08/16 03/08/16 13:02 14:20 18:30 WBC RBC Hgb Hct MCV MCH MCHC RDW Plt Count Sodium 136 L Potassium 3.5 L Chloride 98.9 Carbon Dioxide 21 L Anion Gap 20 BUN 6 L Creatinine 0.8 Estimated GFR > 60 BUN/Creatinine Ratio 7.50 Glucose 109 H Uric Acid Calcium 9.0 Magnesium 4.3 H Total Bilirubin < 0.2 AST 42 H ALT 7 Alkaline Phosphatase 169 H Lactate Dehydrogenase Total Protein 7.0 Albumin 3.4 L Albumin/Globulin Ratio 0.9 Urine Color Straw Urine Turbidity Clear Urine pH 7.0 Ur Specific [place] 1.005 Urine Protein <15 mg/dl Urine Glucose (UA) Neg Urine Ketones Neg Urine Blood Neg Urine Nitrite Neg Urine Bilirubin Neg Urine Urobilinogen < 2.0 Ur Leukocyte Esterase Neg Urine WBC (Auto) < 1.0 Urine RBC (Auto) 2.0 Blood Type Antibody Screen
--- NOTE | 2016-03-09 05:51 | Event Note ---
Date: 03/09/16 (alerted by RN that Mag level is 6.9) MagSulfate decreased to 1gm/hr. Pt awakened A&O X 3. Responded approp. to questions. BP 135/85 Ctx have decreased in freq. Pt no longer c/o bacl pain. Cervidil due out @ 0288 Report to oncoming [facility] and
[2016-03-09] MEDS: TYLENOL PO PRN ×2 (08:36→23:33)
[2016-03-09 08:51] LABS: Alanine Aminotransferase 18 units/L (7-56); Albumin 3.1 g/dL (3.9-5); Albumin/Globulin Ratio 0.9 %; Alkaline Phosphatase 155 units/L (35-129); Bilirubin,Total < 0.2 mg/dL (0.1-1.2); Total Protein 6.4 g/dL (6.3-8.2)
[2016-03-09 09:02] LABS: Bilirubin,Direct < 0.2 mg/dL (0-0.2)
[2016-03-09] MEDS: APRESOLINE IV PRN ×4 (09:07→22:27)
--- NOTE | 2016-03-09 09:10 | Progress Note ---
Assessment and Plan Patient c/o ctx, OJEDA and back pain, toco adjusted and ctx noted q2-3 minutes, palpated moderate intensity. Cervidil removed. Plan discussed with patient, family and RN to begin pitocin augmentation in 20 minutes. Patient can have epidural if she makes any additional cervical change, if desires. She was recently medicated for OJEDA with tylenol, rn to notify provider of OJEDA is not resolved within the hour. Strict monitoring of I&O, BP and tracing discussed with RN and CN. - Patient Problems (1) Gestational HTN Current Visit: Yes Status: Acute Qualifiers: Trimester: third trimester Qualified Code(s): O13.3 - Gestational [ -induced] hypertension without significant proteinuria, third trimester (2) IUGR (intrauterine growth restriction) Current Visit: Yes Status: Acute (3) 35 weeks gestation of Current Visit: No Status: Acute Subjective - Subjective Date of service: 03/09/16 Principal diagnosis: IUP 35+ weeks, GHTN, IUGR <1st%, IOL Patient reports: vaginal bleeding (normal blood show), movement normal, contractions, no loss of fluid Objective - Vital Signs Vital Signs: Vital Signs - 12hr 03/08/16 03/08/16 03/08/16 21:16 21:46 22:17 Temperature Pulse Rate [ 86 82 78 From Monitor] Respiratory Rate Blood Pressure 138/89 137/87 130/74 [Left Arm] Blood Pressure [Left Radial Artery] O2 Sat by Pulse Oximetry 03/08/16 03/08/16 03/08/16 22:47 23:17 23:47 Temperature Pulse Rate [ 75 81 102 H From Monitor] Respiratory Rate Blood Pressure 132/74 148/86 137/87 [Left Arm] Blood Pressure [Left Radial Artery] O2 Sat by Pulse Oximetry 03/08/16 03/09/16 03/09/16 23:57 00:17 00:47 Temperature 98.0 F Pulse Rate [ 86 101 H From Monitor] Respiratory 20 Rate Blood Pressure 151/94 133/79 [Left Arm] Blood Pressure [Left Radial Artery] O2 Sat by Pulse Oximetry 03/09/16 03/09/16 03/09/16 01:03 01:17 01:47 Temperature Pulse Rate [ 81 93 H From Monitor] Respiratory 20 Rate Blood Pressure 138/80 135/78 [Left Arm] Blood Pressure [Left Radial Artery] O2 Sat by Pulse Oximetry 03/09/16 03/09/16 03/09/16 02:17 02:47 03:17 Temperature Pulse Rate [ 89 85 From Monitor] Respiratory 88 H Rate Blood Pressure 117/63 121/72 126/71 [Left Arm] Blood Pressure [Left Radial Artery] O2 Sat by Pulse Oximetry 03/09/16 03/09/16 03/09/16 03:47 04:17 04:48 Temperature Pulse Rate [ 89 91 H 106 H From Monitor] Respiratory 20 Rate Blood Pressure 123/65 137/88 137/81 [Left Arm] Blood Pressure [Left Radial Artery] O2 Sat by Pulse Oximetry 03/09/16 03/09/16 03/09/16 05:17 05:47 06:16 Temperature Pulse Rate [ 89 91 H 93 H From Monitor] Respiratory Rate Blood Pressure 137/82 137/86 141/93 [Left Arm] Blood Pressure [Left Radial Artery] O2 Sat by Pulse Oximetry 03/09/16 03/09/16 03/09/16 06:47 08:01 08:36 Temperature 97.7 F Pulse Rate [ 97 H 92 H From Monitor] Respiratory 16 18 Rate Blood Pressure 130/79 130/81 [Left Arm] Blood Pressure 130/81 [Left Radial Artery] O2 Sat by Pulse 97 Oximetry 03/09/16 03/09/16 08:39 08:58 Temperature Pulse Rate [ From Monitor] Respiratory Rate Blood Pressure [Left Arm] Blood Pressure 153/90 165/102 [Left Radial Artery] O2 Sat by Pulse Oximetry - Exam Breasts: normal Cardiovascular: Regular rate Lungs: Clear to auscultation, Normal air movement Abdomen: Present: normal appearance, soft Vulva: both: normal Uterus: Present: normal FHR: category 2 Uterine Contraction Monitor Mode: External Cervical Dilatation: 1.5 (normal blood show) Cervical Effacement Percentage: 50 station: -2 Uterine Contraction Frequency (min): 2-3 Uterine Contraction Duration: 60-80 Uterine Contraction Pattern: Regular Uterine Tone Measurement Phase: Contraction Uterine Contraction Intensity: Moderate Extremities: normal Deep Tendon Reflex Grade: Normal but brisk +3 - Labs Labs: Abnormal Labs 03/08/16 03/08/16 03/08/16 13:02 13:02 13:02 WBC 13.5 H Sodium 136 L Potassium 3.5 L Carbon Dioxide 21 L BUN 6 L Glucose 109 H Magnesium AST 42 H Alkaline Phosphatase 169 H Lactate Dehydrogenase 362 H Albumin 3.4 L 03/08/16 03/09/16 03/09/16 18:30 04:00 07:35 WBC Sodium Potassium Carbon Dioxide BUN Glucose Magnesium 4.3 H 6.9 H 6.5 H AST Alkaline Phosphatase Lactate Dehydrogenase Albumin 03/09/16 07:35 WBC Sodium Potassium Carbon Dioxide BUN Glucose Magnesium AST Alkaline Phosphatase 155 H Lactate Dehydrogenase Albumin 3.1 L Laboratory Results - last 24 hr 03/08/16 03/08/16 03/08/16 12:53 13:02 13:02 WBC 13.5 H RBC 3.83 Hgb 11.2 Hct 34.7 MCV 91 MCH 29 MCHC 32 RDW 13.7 Plt Count 259 Sodium Potassium Chloride Carbon Dioxide Anion Gap BUN Creatinine Estimated GFR BUN/Creatinine Ratio Glucose Uric Acid 5.0 Calcium Magnesium Total Bilirubin Direct Bilirubin AST ALT Alkaline Phosphatase Lactate Dehydrogenase 362 H Total Protein Albumin Albumin/Globulin Ratio Urine Color Urine Turbidity Urine pH Ur Specific [place] Urine Protein Urine Glucose (UA) Urine Ketones Urine Blood Urine Nitrite Urine Bilirubin Urine Urobilinogen Ur Leukocyte Esterase Urine WBC (Auto) Urine RBC (Auto) Blood Type O POSITIVE Antibody Screen Negative 03/08/16 03/08/16 03/08/16 13:02 14:20 18:30 WBC RBC Hgb Hct MCV MCH MCHC RDW Plt Count Sodium 136 L Potassium 3.5 L Chloride 98.9 Carbon Dioxide 21 L Anion Gap 20 BUN 6 L Creatinine 0.8 Estimated GFR > 60 BUN/Creatinine Ratio 7.50 Glucose 109 H Uric Acid Calcium 9.0 Magnesium 4.3 H Total Bilirubin < 0.2 Direct Bilirubin AST 42 H ALT 7 Alkaline Phosphatase 169 H Lactate Dehydrogenase Total Protein 7.0 Albumin 3.4 L Albumin/Globulin Ratio 0.9 Urine Color Straw Urine Turbidity Clear Urine pH 7.0 Ur Specific [place] 1.005 Urine Protein <15 mg/dl Urine Glucose (UA) Neg Urine Ketones Neg Urine Blood Neg Urine Nitrite Neg Urine Bilirubin Neg Urine Urobilinogen < 2.0 Ur Leukocyte Esterase Neg Urine WBC (Auto) < 1.0 Urine RBC (Auto) 2.0 Blood Type Antibody Screen 03/09/16 03/09/16 03/09/16 04:00 07:35 07:35 WBC RBC Hgb Hct MCV MCH MCHC RDW Plt Count Sodium Potassium Chloride Carbon Dioxide Anion Gap BUN Creatinine Estimated GFR BUN/Creatinine Ratio Glucose Uric Acid Calcium Magnesium 6.9 H 6.5 H Total Bilirubin < 0.2 Direct Bilirubin < 0.2 AST 38 ALT 18 Alkaline Phosphatase 155 H Lactate Dehydrogenase Total Protein 6.4 Albumin 3.1 L Albumin/Globulin Ratio 0.9 Urine Color Urine Turbidity Urine pH Ur Specific [place] Urine Protein Urine Glucose (UA) Urine Ketones Urine Blood Urine Nitrite Urine Bilirubin Urine Urobilinogen Ur Leukocyte Esterase Urine WBC (Auto) Urine RBC (Auto) Blood Type Antibody Screen
[2016-03-09] MEDS: PITOCin/NS 30 UNIT/500ML 500 ML IV SCH ×3 (09:24→15:14)
[2016-03-09] MEDS: STADOL IV PRN ×3 (09:27→17:02)
--- NOTE | 2016-03-09 17:01 | Progress Note ---
Assessment and Plan SVE with minimal change all day, plan discussed with Dr. Zaldivar and patient for AROM, IUPC and continue to increased pitocin. Pitocin currently @ 6mU. Arom without difficulty, clear/blood tinged fluid. IUPC placed without difficulty tracing ctx well. IVF bolus started for epidural, rn to consult anesthesia on bolus amount d/t elevated b/p and mag. Patient reports OJEDA is improved, but still lingering. b/p has required a dose of hydralizine, at this time ranging 130-150's/80's. - Patient Problems (1) Gestational HTN Current Visit: Yes Status: Acute Qualifiers: Trimester: third trimester Qualified Code(s): O13.3 - Gestational [ -induced] hypertension without significant proteinuria, third trimester (2) IUGR (intrauterine growth restriction) Current Visit: Yes Status: Acute (3) 35 weeks gestation of Current Visit: No Status: Acute Subjective - Subjective Date of service: 03/09/16 Principal diagnosis: IUP 35+6 weeks, GHTN, IUGR <1st%, IOL Patient reports: vaginal bleeding (normal blood show), movement normal, contractions, no loss of fluid Objective - Vital Signs Vital Signs: Vital Signs - 12hr 03/09/16 03/09/16 03/09/16 05:17 05:47 06:16 Temperature Pulse Rate Pulse Rate [ 89 91 H 93 H From Monitor] Respiratory Rate Blood Pressure Blood Pressure 137/82 137/86 141/93 [Left Arm] Blood Pressure [Left Radial Artery] O2 Sat by Pulse Oximetry 03/09/16 03/09/16 03/09/16 06:47 08:01 08:36 Temperature 97.7 F Pulse Rate Pulse Rate [ 97 H 92 H From Monitor] Respiratory 16 18 Rate Blood Pressure Blood Pressure 130/79 130/81 [Left Arm] Blood Pressure 130/81 [Left Radial Artery] O2 Sat by Pulse 97 Oximetry 03/09/16 03/09/16 03/09/16 08:39 08:58 09:07 Temperature Pulse Rate 18 L Pulse Rate [ From Monitor] Respiratory Rate Blood Pressure 165/102 Blood Pressure [Left Arm] Blood Pressure 153/90 165/102 [Left Radial Artery] O2 Sat by Pulse Oximetry 03/09/16 03/09/16 03/09/16 09:20 09:27 10:55 Temperature Pulse Rate Pulse Rate [ 92 H From Monitor] Respiratory 20 Rate Blood Pressure Blood Pressure [Left Arm] Blood Pressure 154/99 145/95 [Left Radial Artery] O2 Sat by Pulse Oximetry 03/09/16 03/09/16 03/09/16 11:19 12:28 12:43 Temperature Pulse Rate 74 Pulse Rate [ 81 From Monitor] Respiratory 16 Rate Blood Pressure Blood Pressure [Left Arm] Blood Pressure 141/88 149/94 [Left Radial Artery] O2 Sat by Pulse 95 97 Oximetry 03/09/16 03/09/16 03/09/16 12:47 12:48 12:53 Temperature Pulse Rate 75 75 75 Pulse Rate [ From Monitor] Respiratory Rate Blood Pressure 151/96 Blood Pressure [Left Arm] Blood Pressure [Left Radial Artery] O2 Sat by Pulse 96 95 Oximetry 03/09/16 03/09/16 03/09/16 12:58 13:03 13:08 Temperature Pulse Rate 103 H 97 H 76 Pulse Rate [ From Monitor] Respiratory Rate Blood Pressure Blood Pressure [Left Arm] Blood Pressure [Left Radial Artery] O2 Sat by Pulse 96 97 98 Oximetry 03/09/16 03/09/16 03/09/16 13:10 13:13 13:17 Temperature Pulse Rate 78 74 Pulse Rate [ From Monitor] Respiratory 18 Rate Blood Pressure 160/102 Blood Pressure [Left Arm] Blood Pressure [Left Radial Artery] O2 Sat by Pulse 98 94 Oximetry 03/09/16 03/09/16 03/09/16 13:18 13:23 13:28 Temperature Pulse Rate 76 72 75 Pulse Rate [ From Monitor] Respiratory Rate Blood Pressure Blood Pressure [Left Arm] Blood Pressure [Left Radial Artery] O2 Sat by Pulse 96 95 94 Oximetry 03/09/16 03/09/16 03/09/16 13:30 13:33 13:38 Temperature Pulse Rate 74 75 78 Pulse Rate [ From Monitor] Respiratory Rate Blood Pressure Blood Pressure [Left Arm] Blood Pressure [Left Radial Artery] O2 Sat by Pulse 94 93 93 Oximetry 03/09/16 03/09/16 03/09/16 13:43 13:46 13:48 Temperature Pulse Rate 73 74 78 Pulse Rate [ From Monitor] Respiratory Rate Blood Pressure Blood Pressure [Left Arm] Blood Pressure [Left Radial Artery] O2 Sat by Pulse 94 94 94 Oximetry 03/09/16 03/09/16 03/09/16 13:49 13:51 13:53 Temperature Pulse Rate 73 74 75 Pulse Rate [ From Monitor] Respiratory Rate Blood Pressure 154/95 Blood Pressure [Left Arm] Blood Pressure [Left Radial Artery] O2 Sat by Pulse 94 94 Oximetry 03/09/16 03/09/16 03/09/16 13:57 13:58 14:01 Temperature Pulse Rate 76 72 Pulse Rate [ 72 From Monitor] Respiratory 16 Rate Blood Pressure Blood Pressure [Left Arm] Blood Pressure 154/95 [Left Radial Artery] O2 Sat by Pulse 94 94 95 Oximetry 03/09/16 03/09/16 03/09/16 14:02 14:03 14:08 Temperature Pulse Rate 75 73 76 Pulse Rate [ From Monitor] Respiratory Rate Blood Pressure Blood Pressure [Left Arm] Blood Pressure [Left Radial Artery] O2 Sat by Pulse 94 95 94 Oximetry 03/09/16 03/09/16 03/09/16 14:13 14:17 14:18 Temperature Pulse Rate 75 71 71 Pulse Rate [ From Monitor] Respiratory Rate Blood Pressure 156/97 Blood Pressure [Left Arm] Blood Pressure [Left Radial Artery] O2 Sat by Pulse 94 96 Oximetry 03/09/16 03/09/16 03/09/16 14:21 14:23 14:27 Temperature Pulse Rate 73 72 72 Pulse Rate [ From Monitor] Respiratory Rate Blood Pressure Blood Pressure [Left Arm] Blood Pressure [Left Radial Artery] O2 Sat by Pulse 94 95 94 Oximetry 03/09/16 03/09/16 03/09/16 14:28 14:33 14:34 Temperature Pulse Rate 73 73 72 Pulse Rate [ From Monitor] Respiratory Rate Blood Pressure Blood Pressure [Left Arm] Blood Pressure [Left Radial Artery] O2 Sat by Pulse 95 95 94 Oximetry 03/09/16 03/09/16 03/09/16 14:38 14:43 14:48 Temperature Pulse Rate 73 68 71 Pulse Rate [ From Monitor] Respiratory Rate Blood Pressure 174/103 Blood Pressure [Left Arm] Blood Pressure [Left Radial Artery] O2 Sat by Pulse 94 97 97 Oximetry 03/09/16 03/09/16 03/09/16 14:53 14:55 14:57 Temperature Pulse Rate 75 74 Pulse Rate [ 75 From Monitor] Respiratory 16 Rate Blood Pressure 174/103 Blood Pressure [Left Arm] Blood Pressure 174/103 [Left Radial Artery] O2 Sat by Pulse 97 Oximetry 03/09/16 03/09/1603/09/17 14:58 15:03 15:08 Temperature Pulse Rate 78 82 82 Pulse Rate [ From Monitor] Respiratory Rate Blood Pressure Blood Pressure [Left Arm] Blood Pressure [Left Radial Artery] O2 Sat by Pulse 96 96 96 Oximetry 03/09/16 03/09/16 03/09/16 15:12 15:13 15:17 Temperature Pulse Rate 82 81 81 Pulse Rate [ From Monitor] Respiratory 16 Rate Blood Pressure 138/83 142/83 Blood Pressure [Left Arm] Blood Pressure 138/83 [Left Radial Artery] O2 Sat by Pulse 95 Oximetry 03/09/16 03/09/16 03/09/16 15:18 15:23 15:28 Temperature Pulse Rate 83 83 85 Pulse Rate [ From Monitor] Respiratory Rate Blood Pressure Blood Pressure [Left Arm] Blood Pressure [Left Radial Artery] O2 Sat by Pulse 95 96 95 Oximetry 03/09/16 03/09/16 03/09/16 15:33 15:38 15:43 Temperature Pulse Rate 82 86 84 Pulse Rate [ From Monitor] Respiratory Rate Blood Pressure Blood Pressure [Left Arm] Blood Pressure [Left Radial Artery] O2 Sat by Pulse 96 96 96 Oximetry 03/09/16 03/09/16 03/09/16 15:47 15:48 15:53 Temperature Pulse Rate 86 83 84 Pulse Rate [ From Monitor] Respiratory Rate Blood Pressure 142/82 Blood Pressure [Left Arm] Blood Pressure [Left Radial Artery] O2 Sat by Pulse 95 95 Oximetry 03/09/16 03/09/16 03/09/16 15:58 16:01 16:03 Temperature Pulse Rate 86 83 81 Pulse Rate [ From Monitor] Respiratory Rate Blood Pressure Blood Pressure [Left Arm] Blood Pressure [Left Radial Artery] O2 Sat by Pulse 95 94 95 Oximetry 03/09/16 03/09/16 03/09/16 16:08 16:13 16:17 Temperature Pulse Rate 82 85 81 Pulse Rate [ From Monitor] Respiratory Rate Blood Pressure 152/87 Blood Pressure [Left Arm] Blood Pressure [Left Radial Artery] O2 Sat by Pulse 95 96 Oximetry 03/09/16 03/09/16 03/09/16 16:18 16:23 16:28 Temperature Pulse Rate 84 79 99 H Pulse Rate [ From Monitor] Respiratory Rate Blood Pressure Blood Pressure [Left Arm] Blood Pressure [Left Radial Artery] O2 Sat by Pulse 96 96 97 Oximetry 03/09/16 16:33 Temperature Pulse Rate 78 Pulse Rate [ From Monitor] Respiratory Rate Blood Pressure Blood Pressure [Left Arm] Blood Pressure [Left Radial Artery] O2 Sat by Pulse 97 Oximetry - Exam Breasts: normal Cardiovascular: Regular rate Lungs: Clear to auscultation, Normal air movement Abdomen: Present: normal appearance, soft Vulva: both: normal Uterus: Present: normal FHR: category 1 Uterine Contraction Monitor Mode: Internal Cervical Dilatation: 2 Cervical Effacement Percentage: 50 station: -2 Uterine Contraction Frequency (min): 1-1.5 Uterine Contraction Duration: 50 Uterine Contraction Pattern: Regular Uterine Tone Measurement Phase: Contraction Uterine Contraction Intensity: Mild Uterine Tone Measurement (Intensity): 40 Extremities: normal Deep Tendon Reflex Grade: Normal but brisk +3 - Labs Labs: Abnormal Labs 03/08/16 03/08/16 03/08/16 13:02 13:02 13:02 WBC 13.5 H Sodium 136 L Potassium 3.5 L Carbon Dioxide 21 L BUN 6 L Glucose 109 H Magnesium AST 42 H Alkaline Phosphatase 169 H Lactate Dehydrogenase 362 H Albumin 3.4 L 03/08/16 03/09/16 03/09/16 18:30 04:00 07:35 WBC Sodium Potassium Carbon Dioxide BUN Glucose Magnesium 4.3 H 6.9 H 6.5 H AST Alkaline Phosphatase Lactate Dehydrogenase Albumin 03/09/16 07:35 WBC Sodium Potassium Carbon Dioxide BUN Glucose Magnesium AST Alkaline Phosphatase 155 H Lactate Dehydrogenase Albumin 3.1 L Laboratory Results - last 24 hr 03/08/16 03/08/16 03/09/16 13:02 18:30 04:00 Magnesium 4.3 H 6.9 H Total Bilirubin Direct Bilirubin AST ALT Alkaline Phosphatase Total Protein Albumin Albumin/Globulin Ratio RPR Nonreactive 03/09/16 03/09/16 07:35 07:35 Magnesium 6.5 H Total Bilirubin < 0.2 Direct Bilirubin < 0.2 AST 38 ALT 18 Alkaline Phosphatase 155 H Total Protein 6.4 Albumin 3.1 L Albumin/Globulin Ratio 0.9 RPR
[2016-03-09] MEDS ORDERED: ePHEDrine SULFATE ONE (17:38)
[2016-03-09] MEDS ORDERED: ePHEDrine SULFATE IV PRN (18:36)
[2016-03-09] MEDS ORDERED: NARCAN 2 MG/2 ML IV PRN (18:36)
--- NOTE | 2016-03-09 18:38 | Anesthesia Consultation ---
Anesthesia Consult and Med Hx Date of service: 03/09/16 - Airway Anesthetic Teeth Evaluation: Good ROM Head & Neck: Adequate Mental/Hyoid Distance: Adequate Mallampati Class: Class II Intubation Access Assessment: Probably Good - Pulmonary Exam CTA: Yes - Cardiac Exam Cardiac Exam: RRR - Pre-Operative Health Status ASA Pre-Surgery Classification: ASA2 Proposed Anesthetic Plan: Epidural - Pulmonary Hx Asthma: No COPD: No Hx Pneumonia: No - Cardiovascular System Hx Hypertension: No Hx Pacemaker: No Hx Internal Defibrillator: No - Central Nervous System Hx Seizures: No Hx Psychiatric Problems: No - Endocrine Hx Renal Disease: No Hx End Stage Renal Disease: No Hx Hypothyroidism: No Hx Hyperthyroidism: Yes - Hematic Hx Anemia: No Hx Sickle Cell Disease: No - Other Systems Hx Alcohol Use: No
--- NOTE | 2016-03-09 18:47 | Progress Note ---
Assessment and Plan patient doing well s/p epidural placement, comfortable. Pitocin now on 14mU, fht CAT 1 with early decels. Plan to continue increasing pitocin as needed for adequate labor. Output adequate, VSS, Dr. Zaldivar updated on patient's status. anticipate . Will reevaluate PRN. - Patient Problems (1) Gestational HTN Current Visit: Yes Status: Acute Qualifiers: Trimester: third trimester Qualified Code(s): O13.3 - Gestational [ -induced] hypertension without significant proteinuria, third trimester (2) IUGR (intrauterine growth restriction) Current Visit: Yes Status: Acute (3) 35 weeks gestation of Current Visit: No Status: Acute Subjective - Subjective Date of service: 03/09/16 (post epidural) Principal diagnosis: IUP 35+6 weeks, GHTN, IUGR <1st%, IOL Patient reports: no new complaints (very comfortable s/p epidural) Objective - Vital Signs Vital Signs: Vital Signs - 12hr 03/09/16 03/09/16 03/09/16 06:47 08:01 08:36 Temperature 97.7 F Pulse Rate Pulse Rate [ 97 H 92 H From Monitor] Respiratory 16 18 Rate Blood Pressure Blood Pressure 130/79 130/81 [Left Arm] Blood Pressure 130/81 [Left Radial Artery] O2 Sat by Pulse 97 Oximetry 03/09/16 03/09/16 03/09/16 08:39 08:58 09:07 Temperature Pulse Rate 18 L Pulse Rate [ From Monitor] Respiratory Rate Blood Pressure 165/102 Blood Pressure [Left Arm] Blood Pressure 153/90 165/102 [Left Radial Artery] O2 Sat by Pulse Oximetry 03/09/16 03/09/16 03/09/16 09:20 09:27 10:55 Temperature Pulse Rate Pulse Rate [ 92 H From Monitor] Respiratory 20 Rate Blood Pressure Blood Pressure [Left Arm] Blood Pressure 154/99 145/95 [Left Radial Artery] O2 Sat by Pulse Oximetry 03/09/16 03/09/16 03/09/16 11:19 12:28 12:43 Temperature Pulse Rate 74 Pulse Rate [ 81 From Monitor] Respiratory 16 Rate Blood Pressure Blood Pressure [Left Arm] Blood Pressure 141/88 149/94 [Left Radial Artery] O2 Sat by Pulse 95 97 Oximetry 03/09/16 03/09/16 03/09/16 12:47 12:48 12:53 Temperature Pulse Rate 75 75 75 Pulse Rate [ From Monitor] Respiratory Rate Blood Pressure 151/96 Blood Pressure [Left Arm] Blood Pressure [Left Radial Artery] O2 Sat by Pulse 96 95 Oximetry 03/09/16 03/09/16 03/09/16 12:58 13:03 13:08 Temperature Pulse Rate 103 H 97 H 76 Pulse Rate [ From Monitor] Respiratory Rate Blood Pressure Blood Pressure [Left Arm] Blood Pressure [Left Radial Artery] O2 Sat by Pulse 96 97 98 Oximetry 03/09/16 03/09/16 03/09/16 13:10 13:13 13:17 Temperature Pulse Rate 78 74 Pulse Rate [ From Monitor] Respiratory 18 Rate Blood Pressure 160/102 Blood Pressure [Left Arm] Blood Pressure [Left Radial Artery] O2 Sat by Pulse 98 94 Oximetry 03/09/16 03/09/16 03/09/16 13:18 13:23 13:28 Temperature Pulse Rate 76 72 75 Pulse Rate [ From Monitor] Respiratory Rate Blood Pressure Blood Pressure [Left Arm] Blood Pressure [Left Radial Artery] O2 Sat by Pulse 96 95 94 Oximetry 03/09/16 03/09/16 03/09/16 13:30 13:33 13:38 Temperature Pulse Rate 74 75 78 Pulse Rate [ From Monitor] Respiratory Rate Blood Pressure Blood Pressure [Left Arm] Blood Pressure [Left Radial Artery] O2 Sat by Pulse 94 93 93 Oximetry 03/09/16 03/09/16 03/09/16 13:43 13:46 13:48 Temperature Pulse Rate 73 74 78 Pulse Rate [ From Monitor] Respiratory Rate Blood Pressure Blood Pressure [Left Arm] Blood Pressure [Left Radial Artery] O2 Sat by Pulse 94 94 94 Oximetry 03/09/16 03/09/16 03/09/16 13:49 13:51 13:53 Temperature Pulse Rate 73 74 75 Pulse Rate [ From Monitor] Respiratory Rate Blood Pressure 154/95 Blood Pressure [Left Arm] Blood Pressure [Left Radial Artery] O2 Sat by Pulse 94 94 Oximetry 03/09/16 03/09/16 03/09/16 13:57 13:58 14:01 Temperature Pulse Rate 76 72 Pulse Rate [ 72 From Monitor] Respiratory 16 Rate Blood Pressure Blood Pressure [Left Arm] Blood Pressure 154/95 [Left Radial Artery] O2 Sat by Pulse 94 94 95 Oximetry 03/09/16 03/09/16 03/09/16 14:02 14:03 14:08 Temperature Pulse Rate 75 73 76 Pulse Rate [ From Monitor] Respiratory Rate Blood Pressure Blood Pressure [Left Arm] Blood Pressure [Left Radial Artery] O2 Sat by Pulse 94 95 94 Oximetry 03/09/16 03/09/16 03/09/16 14:13 14:17 14:18 Temperature Pulse Rate 75 71 71 Pulse Rate [ From Monitor] Respiratory Rate Blood Pressure 156/97 Blood Pressure [Left Arm] Blood Pressure [Left Radial Artery] O2 Sat by Pulse 94 96 Oximetry 03/09/16 03/09/16 03/09/16 14:21 14:23 14:27 Temperature Pulse Rate 73 72 72 Pulse Rate [ From Monitor] Respiratory Rate Blood Pressure Blood Pressure [Left Arm] Blood Pressure [Left Radial Artery] O2 Sat by Pulse 94 95 94 Oximetry 03/09/16 03/09/16 03/09/16 14:28 14:33 14:34 Temperature Pulse Rate 73 73 72 Pulse Rate [ From Monitor] Respiratory Rate Blood Pressure Blood Pressure [Left Arm] Blood Pressure [Left Radial Artery] O2 Sat by Pulse 95 95 94 Oximetry 03/09/16 03/09/16 03/09/16 14:38 14:43 14:48 Temperature Pulse Rate 73 68 71 Pulse Rate [ From Monitor] Respiratory Rate Blood Pressure 174/103 Blood Pressure [Left Arm] Blood Pressure [Left Radial Artery] O2 Sat by Pulse 94 97 97 Oximetry 03/09/16 03/09/16 03/09/16 14:53 14:55 14:57 Temperature Pulse Rate 75 74 Pulse Rate [ 75 From Monitor] Respiratory 16 Rate Blood Pressure 174/103 Blood Pressure [Left Arm] Blood Pressure 174/103 [Left Radial Artery] O2 Sat by Pulse 97 Oximetry 03/09/16 03/09/16 03/09/16 14:58 15:03 15:08 Temperature Pulse Rate 78 82 82 Pulse Rate [ From Monitor] Respiratory Rate Blood Pressure Blood Pressure [Left Arm] Blood Pressure [Left Radial Artery] O2 Sat by Pulse 96 96 96 Oximetry 03/09/16 03/09/16 03/09/16 15:12 15:13 15:17 Temperature Pulse Rate 82 81 81 Pulse Rate [ From Monitor] Respiratory 16 Rate Blood Pressure 138/83 142/83 Blood Pressure [Left Arm] Blood Pressure 138/83 [Left Radial Artery] O2 Sat by Pulse 95 Oximetry 03/09/16 03/09/16 03/09/16 15:18 15:23 15:28 Temperature Pulse Rate 83 83 85 Pulse Rate [ From Monitor] Respiratory Rate Blood Pressure Blood Pressure [Left Arm] Blood Pressure [Left Radial Artery] O2 Sat by Pulse 95 96 95 Oximetry 03/09/16 03/09/16 03/09/16 15:33 15:38 15:43 Temperature Pulse Rate 82 86 84 Pulse Rate [ From Monitor] Respiratory Rate Blood Pressure Blood Pressure [Left Arm] Blood Pressure [Left Radial Artery] O2 Sat by Pulse 96 96 96 Oximetry 03/09/16 03/09/16 03/09/16 15:47 15:48 15:53 Temperature Pulse Rate 86 83 84 Pulse Rate [ From Monitor] Respiratory Rate Blood Pressure 142/82 Blood Pressure [Left Arm] Blood Pressure [Left Radial Artery] O2 Sat by Pulse 95 95 Oximetry 03/09/16 03/09/16 03/09/16 15:58 16:01 16:03 Temperature Pulse Rate 86 83 81 Pulse Rate [ From Monitor] Respiratory Rate Blood Pressure Blood Pressure [Left Arm] Blood Pressure [Left Radial Artery] O2 Sat by Pulse 95 94 95 Oximetry 03/09/16 03/09/16 03/09/16 16:08 16:13 16:17 Temperature Pulse Rate 82 85 81 Pulse Rate [ From Monitor] Respiratory Rate Blood Pressure 152/87 Blood Pressure [Left Arm] Blood Pressure [Left Radial Artery] O2 Sat by Pulse 95 96 Oximetry 03/09/16 03/09/16 03/09/16 16:18 16:23 16:28 Temperature Pulse Rate 84 79 99 H Pulse Rate [ From Monitor] Respiratory Rate Blood Pressure Blood Pressure [Left Arm] Blood Pressure [Left Radial Artery] O2 Sat by Pulse 96 96 97 Oximetry 03/09/16 03/09/16 16:33 17:02 Temperature Pulse Rate 78 Pulse Rate [ From Monitor] Respiratory 20 Rate Blood Pressure Blood Pressure [Left Arm] Blood Pressure [Left Radial Artery] O2 Sat by Pulse 97 Oximetry - Exam Breasts: normal Cardiovascular: Regular rate Lungs: Clear to auscultation, Normal air movement Abdomen: Present: normal appearance, soft Vulva: both: normal Uterus: Present: normal FHR: category 1 Uterine Contraction Monitor Mode: Internal Cervical Dilatation: 4.5 (small amount blood show) Cervical Effacement Percentage: 80 station: -1 Uterine Contraction Frequency (min): 2-3 Uterine Contraction Duration: 60 Uterine Contraction Pattern: Regular Uterine Tone Measurement Phase: Contraction Uterine Contraction Intensity: Mild Uterine Tone Measurement (Intensity): 25 Extremities: normal - Labs Labs: Abnormal Labs 03/08/16 03/08/16 03/08/16 13:02 13:02 13:02 WBC 13.5 H Sodium 136 L Potassium 3.5 L Carbon Dioxide 21 L BUN 6 L Glucose 109 H Magnesium AST 42 H Alkaline Phosphatase 169 H Lactate Dehydrogenase 362 H Albumin 3.4 L 03/08/16 03/09/16 03/09/16 18:30 04:00 07:35 WBC Sodium Potassium Carbon Dioxide BUN Glucose Magnesium 4.3 H 6.9 H 6.5 H AST Alkaline Phosphatase Lactate Dehydrogenase Albumin 03/09/16 03/09/16 07:35 Unknown WBC Sodium Potassium Carbon Dioxide BUN Glucose Magnesium 6.2 H AST Alkaline Phosphatase 155 H Lactate Dehydrogenase Albumin 3.1 L Laboratory Results - last 24 hr 03/08/16 03/08/16 03/09/16 13:02 18:30 04:00 Magnesium 4.3 H 6.9 H Total Bilirubin Direct Bilirubin AST ALT Alkaline Phosphatase Total Protein Albumin Albumin/Globulin Ratio RPR Nonreactive 03/09/16 03/09/16 03/09/16 07:35 07:35 Unknown Magnesium 6.5 H 6.2 H Total Bilirubin < 0.2 Direct Bilirubin < 0.2 AST 38 ALT 18 Alkaline Phosphatase 155 H Total Protein 6.4 Albumin 3.1 L Albumin/Globulin Ratio 0.9 RPR
[2016-03-09] MEDS ORDERED: fentaNYL-BUPIV 2 MCG/ML-0.125% 100 ML EPIDURAL SCH (19:00)
[2016-03-09] MEDS: MAGNESIUM SULFATE 40GM/1000ML 1,000 ML IV SCH (19:11)
--- NOTE | 2016-03-09 19:45 | Progress Note ---
Assessment and Plan Patient without complaints, several early/variable decels noted in tracing - SVE 680/-1. Plan to reposition to right and left lateral. Will reevaluate PRN. - Patient Problems (1) Gestational HTN Current Visit: Yes Status: Acute Qualifiers: Trimester: third trimester Qualified Code(s): O13.3 - Gestational [ -induced] hypertension without significant proteinuria, third trimester (2) IUGR (intrauterine growth restriction) Current Visit: Yes Status: Acute (3) 35 weeks gestation of Current Visit: No Status: Acute Subjective - Subjective Date of service: 03/09/16 Principal diagnosis: IUP 35+6 weeks, GHTN, IUGR <1st%, IOL Patient reports: no new complaints (very comfortable s/p epidural) Objective - Vital Signs Vital Signs: Vital Signs - 12hr 03/09/16 03/09/16 03/09/16 08:01 08:36 08:39 Temperature 97.7 F Pulse Rate Pulse Rate [ 92 H From Monitor] Respiratory 16 18 Rate Blood Pressure Blood Pressure 130/81 [Left Arm] Blood Pressure 130/81 153/90 [Left Radial Artery] O2 Sat by Pulse 97 Oximetry 03/09/16 03/09/16 03/09/16 08:58 09:07 09:20 Temperature Pulse Rate 18 L Pulse Rate [ 92 H From Monitor] Respiratory Rate Blood Pressure 165/102 Blood Pressure [Left Arm] Blood Pressure 165/102 154/99 [Left Radial Artery] O2 Sat by Pulse Oximetry 03/09/16 03/09/16 03/09/16 09:27 10:55 11:19 Temperature Pulse Rate Pulse Rate [ From Monitor] Respiratory 20 Rate Blood Pressure Blood Pressure [Left Arm] Blood Pressure 145/95 141/88 [Left Radial Artery] O2 Sat by Pulse Oximetry 03/09/16 03/09/16 03/09/16 12:28 12:43 12:47 Temperature Pulse Rate 74 75 Pulse Rate [ 81 From Monitor] Respiratory 16 Rate Blood Pressure 151/96 Blood Pressure [Left Arm] Blood Pressure 149/94 [Left Radial Artery] O2 Sat by Pulse 95 97 Oximetry 03/09/16 03/09/16 03/09/16 12:48 12:53 12:58 Temperature Pulse Rate 75 75 103 H Pulse Rate [ From Monitor] Respiratory Rate Blood Pressure Blood Pressure [Left Arm] Blood Pressure [Left Radial Artery] O2 Sat by Pulse 96 95 96 Oximetry 03/09/16 03/09/16 03/09/16 13:03 13:08 13:10 Temperature Pulse Rate 97 H 76 Pulse Rate [ From Monitor] Respiratory 18 Rate Blood Pressure Blood Pressure [Left Arm] Blood Pressure [Left Radial Artery] O2 Sat by Pulse 97 98 Oximetry 03/09/16 03/09/16 03/09/16 13:13 13:17 13:18 Temperature Pulse Rate 78 74 76 Pulse Rate [ From Monitor] Respiratory Rate Blood Pressure 160/102 Blood Pressure [Left Arm] Blood Pressure [Left Radial Artery] O2 Sat by Pulse 98 94 96 Oximetry 03/09/16 03/09/16 03/09/16 13:23 13:28 13:30 Temperature Pulse Rate 72 75 74 Pulse Rate [ From Monitor] Respiratory Rate Blood Pressure Blood Pressure [Left Arm] Blood Pressure [Left Radial Artery] O2 Sat by Pulse 95 94 94 Oximetry 03/09/16 03/09/16 03/09/16 13:33 13:38 13:43 Temperature Pulse Rate 75 78 73 Pulse Rate [ From Monitor] Respiratory Rate Blood Pressure Blood Pressure [Left Arm] Blood Pressure [Left Radial Artery] O2 Sat by Pulse 93 93 94 Oximetry 03/09/16 03/09/16 03/09/16 13:46 13:48 13:49 Temperature Pulse Rate 74 78 73 Pulse Rate [ From Monitor] Respiratory Rate Blood Pressure 154/95 Blood Pressure [Left Arm] Blood Pressure [Left Radial Artery] O2 Sat by Pulse 94 94 Oximetry 03/09/16 03/09/16 03/09/16 13:51 13:53 13:57 Temperature Pulse Rate 74 75 76 Pulse Rate [ From Monitor] Respiratory Rate Blood Pressure Blood Pressure [Left Arm] Blood Pressure [Left Radial Artery] O2 Sat by Pulse 94 94 94 Oximetry 03/09/16 03/09/16 03/09/16 13:58 14:01 14:02 Temperature Pulse Rate 72 75 Pulse Rate [ 72 From Monitor] Respiratory 16 Rate Blood Pressure Blood Pressure [Left Arm] Blood Pressure 154/95 [Left Radial Artery] O2 Sat by Pulse 94 95 94 Oximetry 03/09/16 03/09/16 03/09/16 14:03 14:08 14:13 Temperature Pulse Rate 73 76 75 Pulse Rate [ From Monitor] Respiratory Rate Blood Pressure Blood Pressure [Left Arm] Blood Pressure [Left Radial Artery] O2 Sat by Pulse 95 94 94 Oximetry 03/09/16 03/09/16 03/09/16 14:17 14:18 14:21 Temperature Pulse Rate 71 71 73 Pulse Rate [ From Monitor] Respiratory Rate Blood Pressure 156/97 Blood Pressure [Left Arm] Blood Pressure [Left Radial Artery] O2 Sat by Pulse 96 94 Oximetry 03/09/16 03/09/16 03/09/16 14:23 14:27 14:28 Temperature Pulse Rate 72 72 73 Pulse Rate [ From Monitor] Respiratory Rate Blood Pressure Blood Pressure [Left Arm] Blood Pressure [Left Radial Artery] O2 Sat by Pulse 95 94 95 Oximetry 03/09/16 03/09/16 03/09/16 14:33 14:34 14:38 Temperature Pulse Rate 73 72 73 Pulse Rate [ From Monitor] Respiratory Rate Blood Pressure Blood Pressure [Left Arm] Blood Pressure [Left Radial Artery] O2 Sat by Pulse 95 94 94 Oximetry 03/09/16 03/09/16 03/09/16 14:43 14:48 14:53 Temperature Pulse Rate 68 71 75 Pulse Rate [ From Monitor] Respiratory Rate Blood Pressure 174/103 Blood Pressure [Left Arm] Blood Pressure [Left Radial Artery] O2 Sat by Pulse 97 97 97 Oximetry 03/09/16 03/09/16 03/09/16 14:55 14:57 14:58 Temperature Pulse Rate 74 78 Pulse Rate [ 75 From Monitor] Respiratory 16 Rate Blood Pressure 174/103 Blood Pressure [Left Arm] Blood Pressure 174/103 [Left Radial Artery] O2 Sat by Pulse 96 Oximetry 03/09/16 03/09/16 03/09/16 15:03 15:08 15:12 Temperature Pulse Rate 82 82 82 Pulse Rate [ From Monitor] Respiratory 16 Rate Blood Pressure 138/83 Blood Pressure [Left Arm] Blood Pressure 138/83 [Left Radial Artery] O2 Sat by Pulse 96 96 Oximetry 03/09/16 03/09/16 03/09/16 15:13 15:17 15:18 Temperature Pulse Rate 81 81 83 Pulse Rate [ From Monitor] Respiratory Rate Blood Pressure 142/83 Blood Pressure [Left Arm] Blood Pressure [Left Radial Artery] O2 Sat by Pulse 95 95 Oximetry 03/09/16 03/09/16 03/09/16 15:23 15:28 15:33 Temperature Pulse Rate 83 85 82 Pulse Rate [ From Monitor] Respiratory Rate Blood Pressure Blood Pressure [Left Arm] Blood Pressure [Left Radial Artery] O2 Sat by Pulse 96 95 96 Oximetry 03/09/16 03/09/16 03/09/16 15:38 15:43 15:47 Temperature Pulse Rate 86 84 86 Pulse Rate [ From Monitor] Respiratory Rate Blood Pressure 142/82 Blood Pressure [Left Arm] Blood Pressure [Left Radial Artery] O2 Sat by Pulse 96 96 Oximetry 03/09/16 03/09/16 03/09/16 15:48 15:53 15:58 Temperature Pulse Rate 83 84 86 Pulse Rate [ From Monitor] Respiratory Rate Blood Pressure Blood Pressure [Left Arm] Blood Pressure [Left Radial Artery] O2 Sat by Pulse 95 95 95 Oximetry 03/09/16 03/09/16 03/09/16 16:01 16:03 16:08 Temperature Pulse Rate 83 81 82 Pulse Rate [ From Monitor] Respiratory Rate Blood Pressure Blood Pressure [Left Arm] Blood Pressure [Left Radial Artery] O2 Sat by Pulse 94 95 95 Oximetry 03/09/16 03/09/16 03/09/16 16:13 16:17 16:18 Temperature Pulse Rate 85 81 84 Pulse Rate [ From Monitor] Respiratory Rate Blood Pressure 152/87 Blood Pressure [Left Arm] Blood Pressure [Left Radial Artery] O2 Sat by Pulse 96 96 Oximetry 03/09/16 03/09/16 03/09/16 16:23 16:28 16:33 Temperature Pulse Rate 79 99 H 78 Pulse Rate [ From Monitor] Respiratory Rate Blood Pressure Blood Pressure [Left Arm] Blood Pressure [Left Radial Artery] O2 Sat by Pulse 96 97 97 Oximetry 03/09/16 03/09/16 03/09/16 17:02 19:02 19:12 Temperature 98.2 F Pulse Rate Pulse Rate [ 76 From Monitor] Respiratory 20 16 20 Rate Blood Pressure 138/88 Blood Pressure 140/91 [Left Arm] Blood Pressure [Left Radial Artery] O2 Sat by Pulse 100 Oximetry - Exam Breasts: normal Cardiovascular: Regular rate Lungs: Clear to auscultation, Normal air movement Abdomen: Present: normal appearance, soft Vulva: both: normal Uterus: Present: normal FHR: category 1 Uterine Contraction Monitor Mode: Internal Cervical Dilatation: 6 Cervical Effacement Percentage: 80 station: -1 Uterine Contraction Frequency (min): 1.5-2 Uterine Contraction Duration: 60 Uterine Contraction Pattern: Regular Uterine Tone Measurement Phase: Contraction Uterine Contraction Intensity: Moderate Extremities: normal - Labs Labs: Abnormal Labs 03/08/16 03/08/16 03/08/16 13:02 13:02 13:02 WBC 13.5 H Sodium 136 L Potassium 3.5 L Carbon Dioxide 21 L BUN 6 L Glucose 109 H Magnesium AST 42 H Alkaline Phosphatase 169 H Lactate Dehydrogenase 362 H Albumin 3.4 L 03/08/16 03/09/16 03/09/16 18:30 04:00 07:35 WBC Sodium Potassium Carbon Dioxide BUN Glucose Magnesium 4.3 H 6.9 H 6.5 H AST Alkaline Phosphatase Lactate Dehydrogenase Albumin 03/09/16 03/09/16 07:35 Unknown WBC Sodium Potassium Carbon Dioxide BUN Glucose Magnesium 6.2 H AST Alkaline Phosphatase 155 H Lactate Dehydrogenase Albumin 3.1 L Laboratory Results - last 24 hr 03/08/16 03/09/16 03/09/16 13:02 04:00 07:35 Magnesium 6.9 H 6.5 H Total Bilirubin Direct Bilirubin AST ALT Alkaline Phosphatase Total Protein Albumin Albumin/Globulin Ratio RPR Nonreactive 03/09/16 03/09/16 07:35 Unknown Magnesium 6.2 H Total Bilirubin < 0.2 Direct Bilirubin < 0.2 AST 38 ALT 18 Alkaline Phosphatase 155 H Total Protein 6.4 Albumin 3.1 L Albumin/Globulin Ratio 0.9 RPR
[2016-03-09] MEDS ORDERED: NACL 0.9% 1000 ML 1,000 ML ONE (20:15)
[2016-03-09] MEDS ORDERED: BENADRYL ONE (20:15)
[2016-03-09] MEDS ORDERED: CYTOTEC PR PRN (20:55)
--- NOTE | 2016-03-09 20:55 | Procedure Note ---
OB Delivery Note - Delivery Date of Delivery: 03/09/16 (Male infant) Bight Maker: MAREN BARNETT Estimated blood loss: 300cc - Vaginal Delivery presentation: vertex Delivery position: OA (FOX) Intrapartum events: other(please specify) (GHTN) Delivery induction: cervidil Delivery augmentation: rupture of membranes, pitocin Delivery monitor: external FHT, internal uterine Route of delivery: Delivery placenta: spontaneous Delivery cord: 3 umbilical vessels Episiotomy: none Delivery laceration: none Anesthesia: epidural Delivery comments: Male del over intact perineum, cord clamped and cut, handed off to awaiting NICU team. Cord blood collected. Placenta del spontaneously and complete. Placenta to pathology d/t severe IUGR and GHTN. Pit to IVF, fundus firm and low in the abdomen. 's weight 3#12oz, Apgars 8/9, EBL 300. Will continue magnesium sulfate x 24h. Mother and LDR stable. - A at 1 minute: 8 at 5 minutes: 9 Infant Gender: Male (3#12oz)
[2016-03-09] MEDS ORDERED: NACL 0.9% 1000 ML 1,000 ML VG SCH (21:00)
[2016-03-09] MEDS ORDERED: LACTATED RINGERS 1,000 ML IV SCH (22:00)
[2016-03-10] MEDS ORDERED: SODIUM CHLORIDE FLUSH SYRINGE 10 ML IV NR (00:17)
[2016-03-10] MEDS ORDERED: LANSINOH TP PRN (00:17)
[2016-03-10] MEDS ORDERED: TUCKS PAD TP PRN (00:17)
[2016-03-10] MEDS ORDERED: MILK OF MAGNESIA PO PRN (00:17)
[2016-03-10] MEDS ORDERED: NORCO 5/325 PO PRN (00:17)
[2016-03-10] MEDS ORDERED: PHENERGAN PO PRN (00:17)
[2016-03-10] MEDS ORDERED: PITOCin/NS 20 UNIT/1000ML DRIP 1,000 ML IV SCH (00:17)
[2016-03-10] MEDS ORDERED: DULCOLAX PR PRN (00:17)
[2016-03-10] MEDS ORDERED: BENADRYL PO PRN (00:17)
[2016-03-10] MEDS ORDERED: DERMOPLAST TP PRN (00:17)
[2016-03-10] MEDS ORDERED: BENADRYL IV ONE (02:46)
[2016-03-10] MEDS ORDERED: BOOSTRIX IM ONE (06:00)
[2016-03-10] MEDS ORDERED: FLUARIX QUAD 2016-2017(36 MOS+) IM ONE (12:00)
[2016-03-10 15:18] LABS: Hematocrit 31.3 % (30.3-42.9); Hemoglobin 10.1 gm/dl (10.1-14.3)
[2016-03-10] MEDS: TYLENOL PO PRN (20:10)
--- NOTE | 2016-03-11 07:52 | Progress Note ---
Assessment and Plan - Patient Problems (1) Spontaneous vaginal delivery Onset Date: ~03/09/16 Current Visit: Yes Status: Acute Plan to address problem: pt w/o complaint this AM. Reports she has had occasional HAs that do resolve with Tylenol. Reports NB is doing well in NICU. Pumping BP 150-130/90-70 Pt denies OJEDA @ present, blurred vision, chest pain. FF below umb Lochia scant Perineum intact H&H 12/07 Pt stable s/p vaginal delivery P: continue pathway Plan for d/c tomorrow. Consult . (2) Gestational HTN Current Visit: Yes Status: Acute Qualifiers: Trimester: T Plan to address problem: continue close observation of BPs No medication at this writing Subjective - Subjective Date of service: 03/11/16 (pt sleeping soundly; no c/o voiced) Principal diagnosis: 03/09/16, male in NICU, GHTN, IUGR <1st%, IOL Interval history: Past History : 3 Term Births: 0 Premature Births: 0 Living Children: 0 Para: 0 Mult. Births: 0 Prev : 0 Aborta: 2 Elect. Ab: 1 Spont. Ab: 1 # 1 Delivery date: 2006 Weeks Gestation: 17 Delivery type: SAB Comments: pt reports no FHT, unknown cause # 2 Delivery date: 2009 Weeks Gestation: 14 Delivery type: EAB Past Medical History: Negative Past Medical History Past Surgical History: negative Past Medical History Anesthesia Complications: negative Anemia: negative Autoimmune Disorder: negative Bleeding Disorder: negative Blood Transfusions: negative Breast Disease: negative Diabetes: negative Heart Disease: negative Hypertension: negative Hepatitis/Liver Disease: negative Kidney Disease/UTI: negative Neurologic/Epilepsy/Migraines: negative Phlebitis/Varicosities: negative Psychiatric: negative Pulmonary Disease/Asthma: negative Thyroid Disease: negative Hospitalizations: negative Surgery (Non-pulp drier): 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 Infection History Hx of STD: none HIV Risk Eval: no Hepatitis B Risk Eval: low risk Personal hx. of genital herpes: no Partner hx. of genital herpes: no Rash, Viral, or Febrile illness since last LMP? no Varicella/Chicken Pox Status: Previous Disease TB Risk: no Genetic History Congenital Heart Defect: Mom: no Dad: no Ethan Disease: Mom: no Dad: no Thalassemia Mom: no Dad: no Neural Tube Defect Mom: no Dad: no Down's Syndrome Mom: no Dad: no Gigi-Sachs Mom: no Dad: no Sickle Cell Disease/Trait Mom: no Dad: no Hemophilia Mom: no Dad: no Muscular Dystrophy Mom: no Dad: no Cystic Fibrosis Mom: no Dad: no Hudspeth Chorea Mom: no Dad: no Mental Retardation Mom: no Dad: no Fragile X Mom: no Dad: no Other Genetic/Chromosomal Disorder Mom: no Dad: no Child w/other defect Mom: no Dad: no Enviromental Exposures Xray Exposure: no Medication, drug, or alcohol use since LMP: no Chemical/Other Exposure: no Exposure to Cat Liter: no Hx of Parvovirus (Fifth Disease): no Occupational Exposure to Children: none Active Medications (reviewed today): ZOFRAN 4 MG ORAL TABS (ONDANSETRON HCL) 1 po q6h PRN nausea Current Allergies (reviewed today): LATEX GLOVES (DISPOSABLE GLOVES) (Critical) ALEVE (NAPROXEN SODIUM CAPS) (Critical) Laboratory Results Routine Urinalysis Leukocytes: negative Nitrite: negative Urobilinogen: negative Protein: 2+ Blood: negative Ketone: large (160) Bilirubin: negative Glucose: negative Urine HCG: positive Review of Systems General Denies fever, chills, sweats, anorexia, fatigue, weakness, malaise, weight loss and sleep disorder. Complains of nausea and vomiting. Denies headache, swelling of legs, abdominal pain, vaginal discharge, vaginal bleeding and contractions. Denies vaginal discharge, incontinence, dysuria, hematuria, urinary frequency, amenorrhea, menorrhagia, abnormal vaginal bleeding, pelvic pain, genital sores, decreased libido, painful periods, painful sex, urinary urgency, hot flashes, vaginal dryness, vaginal itching and vaginal odor. CV Denies chest pains, palpitations, syncope, dyspnea on exertion, orthopnea, PND and peripheral edema. Resp Denies cough, dyspnea at rest, excessive sputum, hemoptysis, wheezing and pleurisy. GI Denies nausea, vomiting, diarrhea, constipation, change in bowel habits, abdominal pain, melena, hematochezia, jaundice, gas/bloating, indigestion/ heartburn, dysphagia and odynophagia. Endo Denies cold intolerance, heat intolerance, polydipsia, polyphagia, polyuria and unusual weight change. Breast Denies left breast lump, right breast lump, nipple discharge, bloody discharge from nipple, breast pain, abnormal mammogram and breast enlargement. MS Denies back pain, joint pain, joint swelling, muscle cramps, muscle weakness, stiffness, arthritis, sciatica, restless legs, leg pain at night and leg pain with exertion. Derm Denies rash, itching, dryness and suspicious lesions. Neuro Denies paralysis, paresthesias, headache, seizures, tremors, vertigo, transient blindness, frequent falls, frequent headaches and difficulty walking. Psych Denies depression, anxiety, irritability and mood swings. Eyes Denies blurring, diplopia, irritation, discharge, vision loss, eye pain and photophobia. ENT Denies earache, ear discharge, tinnitus, decreased hearing, nasal congestion, nosebleeds, sore throat and hoarseness. Allergy Denies urticaria, allergic rash, hay fever and recurrent infections. Heme Denies abnormal bruising, bleeding and enlarged lymph nodes. 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 Vulva/Vagina: No lesions, normal BUS, normal rugae Cervix: No lesions; no cervical motion tenderness Uterus: normal size and position, midline, mobile Fundal Ht: 7 Adnexae: no masses or tenderness Rectovaginal: no masses or tenderness Patient reports: appetite normal, voiding normally, pain well controlled, ambulating normally : in NICU (stable) Objective - Vital Signs Latest vital signs: Vital Signs Temp Pulse Resp BP BP 03/11/16 01:10 99 F 65 18 134/75 03/10/16 20:05 98.9 F 88 18 150/96 03/10/16 18:16 98.5 F 76 18 148/80 03/10/16 16:13 98.7 F 72 18 142/76 03/10/16 14:00 98.4 F 82 18 146/92 03/10/16 11:53 98.2 F 84 18 146/76 03/10/16 09:59 98.4 F 68 18 144/80 03/10/16 08:04 98.1 F 72 18 140/80 Intake and Output 03/10/16 03/10/16 03/11/16 14:59 22:59 06:59 Intake Total 1710 1375 Output Total 850 1200 Balance 860 175 Intake: IV 750 775 Lactated Ringers 1,000 ml 600 400 @ 125 mls/hr IV [facility] Rx#:[id number] Magnesium Sulfate 40Gm/ 150 175 1000ML 1,000 ml @ 2 GM/HR 50 mls/hr IV [facility] Rx#:[id number] NaCl 0.9% 1000 ml 1,000 200 ml @ As Directed VG [facility] Rx#:[id number] Oral 840 240 Intake, Free Water 120 360 Output: Urine 850 1200 Indwelling Catheter 850 1200 Other: Total, Intake Amount 240 240 Total, Output Amount 350 800 Voiding Method Indwelling Catheter - Exam Breasts: Present: (pumping) Cardiovascular: Present: Regular rate Lungs: Present: Normal air movement Abdomen: Present: normal appearance, soft Vulva: both: normal Uterus: Present: normal, fundal height below umbilicus Extremities: Present: normal, edema (feet and legs) Deep Tendon Reflex Grade: Normal +2 Incision: Present: normal, dry, intact Comments: perineum intact; no laceration - Labs Labs: Abnormal lab results 03/10/16 03/10/16 03/10/16 Range/Units 06:24 11:20 18:05 Magnesium 4.4 H 4.7 H 4.4 H (1.7-2.3) mg/dL
--- NOTE | 2016-03-11 09:42 | Progress Note ---
Assessment and Plan - Patient Problems (1) Spontaneous vaginal delivery Onset Date: ~03/09/16 Current Visit: Yes Status: Acute (2) Single live Current Visit: Yes Status: Acute (3) Hyperthyroidism Current Visit: Yes Status: Chronic (4) Gestational HTN Current Visit: Yes Status: Acute Qualifiers: Trimester: third trimester Plan to address problem: Will start Labetalol and o bserve today, ? d/c home tomorrow Subjective - Subjective Date of service: 03/11/16 Principal diagnosis: 03/09/16, male in NICU, GHTN, IUGR <1st%, IOL Interval history: Patient resting in bed. She does want to go home today. Objective - Vital Signs Latest vital signs: Vital Signs Temp Pulse Resp BP BP 03/11/16 05:15 98.6 F 61 18 142/77 03/11/16 01:10 99 F 65 18 134/75 03/10/16 20:05 98.9 F 88 18 150/96 03/10/16 18:16 98.5 F 76 18 148/80 03/10/16 16:13 98.7 F 72 18 142/76 03/10/16 14:00 98.4 F 82 18 146/92 03/10/16 11:53 98.2 F 84 18 146/76 03/10/16 09:59 98.4 F 68 18 144/80 Intake and Output 03/10/16 03/11/16 03/11/16 22:59 06:59 14:59 Intake Total 1375 240 Output Total 1200 600 Balance 175 -360 Intake: IV 775 Lactated Ringers 1,000 ml 400 @ 125 mls/hr IV DIRECT [facility] Rx#:[id number] Magnesium Sulfate 40Gm/ 175 1000ML 1,000 ml @ 2 GM/HR 50 mls/hr IV DIRECT [facility]LAY Rx#:[id number] NaCl 0.9% 1000 ml 1,000 200 ml @ As Directed VG [facility]LAY Rx#:[id number] Oral 240 Intake, Free Water 360 240 Output: Urine 1200 600 Indwelling Catheter 1200 Void 600 Other: Total, Intake Amount 240 Total, Output Amount 800 600 - Labs Labs: Abnormal lab results 03/10/16 03/10/16 03/10/16 Range/Units 06:24 11:20 18:05 Magnesium 4.4 H 4.7 H 4.4 H (1.7-2.3) mg/dL
[2016-03-11] MEDS: PRENATAL VITAMIN PO SCH (10:27)
[2016-03-11] MEDS: TAPAZOLE PO SCH (10:28)
[2016-03-11] MEDS: COLACE PO SCH ×2 (10:28→21:52)
[2016-03-11] MEDS: NORMODYNE PO SCH ×2 (11:09→21:53)
--- NOTE | 2016-03-11 13:00 | Admit Criteria Form ---
Admission Criteria Documentation: HYPERTENSIVE DISORDERS OF Clinical Indications for Admission to Inpatient Care (Place 'X' for any and all applicable criteria): Admission is indicated for ANY ONE of the following (1)(2)(3)(4)(5): [ ]I. Eclampsia[A][B] [ ]II. Preeclampsia with severe features (ie, severe preeclampsia) indicated by ANY ONE of the following[B][C]: [ ]a) SBP greater than or equal to 160 mm Hg or DBP greater than or equal to 110 mm Hg on 2 occasions at least 4 hours apart while the patient is at bed rest (unless antihypertensive therapy is initiated before this time) [ ]b) Platelet count less than 100,000/mm3 (100 x109/L) [ ]c) Impaired liver function as indicated by ANY ONE of the following: [ ]i. Elevation of liver enzymes (eg, SGOT, SGPT) to twice normal concentration [ ]ii. Severe persistent right upper quadrant or epigastric pain unresponsive to medication and not accounted for by alternative diagnosis [ ]d) Progressive renal insufficiency indicated by ANY ONE of the following: [ ]i. Serum creatinine concentration greater than 1.1 mg/dL (97 micromoles/L) [ ]ii. Doubling (from baseline) of serum creatinine concentration in the absence of other renal disease [ ]e) Pulmonary edema [ ]f) Cerebral or visual symptoms (eg, headache, Altered mental status , changes in vision) [ ]III. Delivery planned due to nonsevere preeclampsia as indicated by ALL of the following: [ ]a) Nonsevere preeclampsia present as indicated by ALL of the following: [ ]i. Woman at 20 or more weeks' gestation [ ]ii. New-onset SBP greater than or equal to 140 mm Hg but less than 160 mm Hg or DBP greater than or equal to 90 mm Hg but less than 110 mm Hg on 2 occasions at least 4 hours apart [ ]iii. Proteinuria present as indicated by ANY ONE of the following: [ ]A. Urinary protein excretion greater than or equal to 300 mg per 24-hour collection (or this amount extrapolated from a shorter timed collection) [ ]B. Protein/creatinine ratio greater than or equal to 0.3 (measured in mg/dL) [ ]b) Delivery indicated due to ANY ONE of the following: [ ]i. Gestational age of 37 0/7 weeks or more [ ]ii. Gestational age of 34 0/7 weeks to 36 6/7 weeks and ANY ONE of the following: [ ]A. Progressive labor or rupture of membranes [ ]B. Abnormal biophysical profile [ ]C. Suspected abruptio placentae [ ]D. Ultrasound estimate of weight less than 5th percentile [ ]E. Other indication for delivery [X]IV. Delivery planned due to gestational hypertension[D] because of ANY ONE of the following: [ ]a) Delivery indicated because gestational age of 37 0/7 weeks or more has been reached [X]b) Gestational age of 34 0/7 weeks to 36 6/7 weeks for which delivery is indicated because of ANY ONE of the following: [ ]i. Progressive labor or rupture of membranes [ ]ii. Abnormal biophysical profile [ ]iii. Suspected abruptio placentae [X]iv. Ultrasound estimate of weight less than 5th percentile [ ]v. Other indication for delivery [ ]V. Hypertension of any category[E] during with acute end organ damage as indicated by ANY ONE of the following: [ ]a) Hypertensive encephalopathy (eg, Altered mental status that is severe or persistent )(11) [ ]b) Cerebral infarction [ ]c) Intracranial hemorrhage [ ]d) Myocardial ischemia or infarction [ ]e) Pulmonary edema [ ]f) Aortic dissection [ ]g) Seizure [ ]h) Papilledema [ ]i) Microangiopathic hemolytic anemia [ ]j) Visual loss [ ]k) Acute renal failure [ ]) Hypertension during with evidence of compromise as indicated by ANY ONE of the following: [ ]a) Abnormal heart tones [ ]b) Abnormal stress test [ ]c) Abnormal biophysical profile [ ]VII) patient requires inpatient control of blood pressure indicated by (see Hypertensive Disorders of : Observation Care [facility] guideline as appropriate) ALL of the following: [ ]a) SBP is greater than or equal to 160 mm Hg or DBP is greater than or equal to 105 mm Hg [ ]b) Blood pressure cannot be reduced below these levels with outpatient or observation care treatment (eg, oral medications not effective) Extended stay beyond goal length of stay may be needed for : [ ]a) Eclampsia [ ]b) Ongoing compromise [ ]c) Complications of hypertensive disorders of [ ]d) Active comorbidities (eg, heart failure, poorly controlled diabetes, renal insufficiency) [ ]e) Persistent hypertension [ ]f) Delivery planned The original [facility] content created by [facility] has been revised. The portions of the content which have been revised are identified through the use of italic text or in bold, and [facility] has neither reviewed nor approved the modified material. All other unmodified content is copyright [facility]. Please see references footnoted in the original [facility] edition 2016. Admission Criteria Met: Yes
[2016-03-12] MEDS: TYLENOL PO PRN (08:30)
--- NOTE | 2016-03-12 09:15 | Progress Note ---
Assessment and Plan Patient doing well, no complaints this morning. desires d/c home. lochia scant , afebrile, H&H stable. over last 24h b/p improved with only one diastolic in the 90's. Plan for d/c home on labetalol 200mg BID and f/u in office 1 week for b/p check. - Patient Problems (1) 35 weeks gestation of Current Visit: No Status: Resolved (2) Gestational HTN Current Visit: Yes Status: Acute Qualifiers: Trimester: third trimester (3) IUGR (intrauterine growth restriction) Current Visit: Yes Status: Resolved (4) Single live Current Visit: Yes Status: Acute Subjective - Subjective Date of service: 03/12/16 Principal diagnosis: 03/09/16, male in NICU, GHTN, IUGR <1st%, IOL Patient reports: appetite normal, voiding normally, pain well controlled, ambulating normally, no dizzy ambulation, no nauseated [place]: in NICU Objective - Vital Signs Latest vital signs: Vital Signs Temp Pulse Resp BP BP 03/12/16 05:55 72 150/78 03/11/16 21:35 98.4 F 64 18 154/88 03/11/16 12:35 98.2 F 72 18 116/76 03/11/16 10:40 74 153/92 153/92 03/11/16 09:50 98.5 F 64 18 118/78 Intake and Output 03/11/16 03/12/16 03/12/16 22:59 06:59 14:59 Intake Total 480 240 Balance 480 240 Intake: Oral 240 Intake, Free Water 240 240 Other: Total, Intake Amount 240 # Voids Void 1 1 - Exam Breasts: Present: normal Cardiovascular: Present: Regular rate Lungs: Present: Clear to auscultation, Normal air movement Abdomen: Present: normal appearance, soft Vulva: both: normal Uterus: Present: normal, firm, fundal height at umbilicus Extremities: Present: normal Deep Tendon Reflex Grade: Normal +2
--- NOTE | 2016-03-12 09:19 | Discharge Summary ---
Providers - Providers Date of Admission: 03/08/16 12:03 Date of discharge: 03/12/16 (pt desires d/c home) Attending physician: SARKIS ARGUETA 03/10/16 00:17 Consult to [employer] [CONS] Routine Reason For Exam: assistance with , SNS Primary care physician: RONNI LEDESMA Hospitalization Reason for admission: induction of labor (severe IUGR, GHTN) Delivery: Episiotomy: none Laceration: none Other procedures: none complications: none Discharge diagnosis: IUP at term delivered [place] baby: male Hospital course: uncomplicated vaginal Condition at discharge: Good Disposition: DISCHARGED TO HOME OR SELFCARE - Discharge Diagnoses (1) Gestational HTN Status: Acute Qualifiers: Trimester: third trimester (2) IUGR (intrauterine growth restriction) Status: Resolved (3) Single live Status: Acute Plan - Discharge Medications Prescriptions: Labetalol HCl 200 mg PO BID #60 tablet Lidocain2.5%/Prilocai2.5% [Emla] 5 gm TP PRN #1 tube - Provider Discharge Summary Activity: routine, no sex for 6 weeks, no heavy lifting 4 weeks, no strenuous exercise Diet: routine Instructions: routine Additional instructions: [] Smoking cessation referral if applicable(refer to patient education folder for contact #) [] Refer to [facility]'s [facility] Booklet Call your doctor immediately for: * Fever > 100.5 * Heavy vaginal bleeding ( >1 pad per hour) * Severe persistent headache * Shortness of breath * Reddened, hot, painful area to leg or breast * Drainage or odor from incision. * Keep incision clean and dry at all times and follow doctor's instructions regarding bathing/showering - Follow up plan Follow up: RONNI LEDESMA MD [Primary Care Provider] - 7 Days (Congratulations! Please call [phone] to schedule a bloodpressure check in 1 week and your son's circumcision after he is discharged from the NICU, Bring EMLA cream with you to his visit and await further instructions. Call for any questions or concerns; especially if you experience headaches, blurred vision, or upper abdominal pain. )
[2016-03-12] MEDS: TAPAZOLE PO SCH (10:08)
[2016-03-12] MEDS: PRENATAL VITAMIN PO SCH (10:08)
[2016-03-12] MEDS: COLACE PO SCH (10:09)
[2016-03-12] MEDS: NORMODYNE PO SCH (10:09)
[2016-03-12 13:31] VITALS: BP 145/87
== END 2016-03-12 13:35 | disposition home or self-care (01) | DRG 775 ==
LOC: LD 12:03 → OB 03-10 00:11
PROVIDERS: ADMIT Obstetrics & Gynecology; ATTEND Obstetrics & Gynecology
PROC: 10E0XZZ Delivery of Products of Conception, External Approach (ICD-10-PCS; principal; 2016-03-09)
PROC: 10907ZC Drainage of Amniotic Fluid, Therapeutic from Products of Conception, Via Natural or Artificial Opening (ICD-10-PCS; 2016-03-09)
PROC: 3E0P7GC Introduction of Other Therapeutic Substance into Female Reproductive, Via Natural or Artificial Opening (ICD-10-PCS; 2016-03-09)
PROC: 3E0S3CZ (ICD-10-PCS; 2016-03-09)
PROC: 00HU33Z Insertion of Infusion Device into Spinal Canal, Percutaneous Approach (ICD-10-PCS; 2016-03-09)
DX: O14.94 Unspecified pre-eclampsia, complicating childbirth (principal); O36.5930 Maternal care for other known or suspected poor fetal growth, third trimester, not applicable or unspecified; O99.284 Endocrine, nutritional and metabolic diseases complicating childbirth; Z3A.35 35 weeks gestation of pregnancy; Z88.8 Allergy status to other drugs, medicaments and biological substances; Z91.040 Latex allergy status; Z37.0 Single live birth; O76 Abnormality in fetal heart rate and rhythm complicating labor and delivery
CPT/HCPCS: 36415; 59200; 80053; 80074; 81001; 83615; 83735; 84443; 84550; 85014; 85018; 85027; 86592; 86850; 86900; 86901; 88307; 90686; 99211; G0463; J0360; J0595; J1200; J2590; J3010; J3475; J7030; J7120